=== PATIENT | female | born 1935 | race Caucasian/White ===

== ENCOUNTER 2016-05-17 09:09 | Outpatient (CLI) | payer MEDICARE, OTHER | END 2016-05-17 09:10 | disposition home or self-care (01) | DX: Z12.31 Encounter for screening mammogram for malignant neoplasm of breast (principal) ==

== ENCOUNTER 2016-09-05 06:51 | Outpatient (CLI) | payer MEDICARE, OTHER ==
[2016-09-05 19:42] LABS: ALBUMIN/GLOBULIN RATIO 1.4 (1.0-2.2); BILIRUBIN,TOTAL 0.6 mg/dL (0.2-1.0); BUN - BLOOD UREA NITROGEN 18 mg/dL (6-20); CALCIUM 9.6 mg/dL (8.5-10.3); CARBON DIOXIDE - CO2 29 mmol/L (21-32); CHLORIDE 104 mmol/L (101-111); CHOL/HDL RATIO 4.3 (<4.4); CHOLESTEROL 263 mg/dL; CREATININE 1.1 mg/dL (0.4-1.0); GFR - MDRD 48 (>89); GLUCOSE 96 mg/dL (70-100); HDL CHOLESTEROL 61 mg/dL; LDL/HDL RATIO 2.9 (<4.4); POTASSIUM 4.3 mmol/L (3.5-5.0); SODIUM 140 mmol/L (135-145); TOTAL PROTEIN 7.3 g/dL (6.7-8.2); TRIGLYCERIDES 125 mg/dL; VLDL CHOLESTEROL 25 mg/dL
== END 2016-09-05 06:52 ==
LOC: LAB.WCP 06:51
PROVIDERS: ATTEND Physician Assistant Medical
DX: E78.5 Hyperlipidemia, unspecified (principal)
CPT/HCPCS: 36415; 80053; 80061

== ENCOUNTER 2016-12-20 12:43 | Outpatient (CLI) | payer MEDICARE, OTHER | END 2016-12-20 12:44 | disposition home or self-care (01) | LOC: LAB.R 12:43 | PROVIDERS: ATTEND Physician Assistant Medical | DX: N39.0 Urinary tract infection, site not specified (principal) | CPT/HCPCS: 87086 ==

== ENCOUNTER 2017-03-16 08:00 | Outpatient (CLI) | payer MEDICARE, OTHER ==
[2017-03-16 19:25] LABS: BASOPHILS # (AUTO) 0.1 10^3/uL (0.0-0.1); BASOPHILS % (AUTO) 0.8 %; EOSINOPHILS # (AUTO) 0.1 10^3/uL (0.0-0.7); EOSINOPHILS % (AUTO) 0.8 %; HGB - HEMOGLOBIN 14.1 g/dL (12.0-16.0); LYMPHOCYTES # (AUTO) 2.2 10^3/uL (1.5-3.5); MEAN CORPUSCULAR HEMOGLOBIN 28.9 pg (27.0-31.0); MEAN CORPUSCULAR HGB CONC 32.3 g/dL (32.0-36.0); MEAN CORPUSCULAR VOLUME 89.3 fL (81.0-99.0); MEAN PLATELET VOLUME 9.9 fL (7.9-10.8); MONOCYTES # (AUTO) 0.5 10^3/uL (0.0-1.0); MONOCYTES % (AUTO) 6.5 %; NEUTROPHILS # (AUTO) 4.9 10^3/uL (1.5-6.6); NEUTROPHILS % (AUTO) 63.9 %; PLT - PLATELET COUNT 292 10^3/uL (130-450); RED CELL DISTRIBUTION WIDTH 14.2 % (12.0-15.0); WHITE BLOOD COUNT 7.7 x10^3/uL (4.8-10.8)
[2017-03-16 19:54] LABS: ALBUMIN 4.3 g/dL (3.2-5.5); ALBUMIN/GLOBULIN RATIO 1.4 (1.0-2.2); ALKALINE PHOSPHATASE 62 IU/L (42-121); ALT ALANINE AMINOTRANSFERASE 15 IU/L (10-60); AST ASPARTATE AMINOTRANSFERASE 23 IU/L (10-42); BILIRUBIN,TOTAL 0.6 mg/dL (0.2-1.0); BUN - BLOOD UREA NITROGEN 17 mg/dL (6-20); CALCIUM 9.2 mg/dL (8.5-10.3); CARBON DIOXIDE - CO2 26 mmol/L (21-32); CHLORIDE 109 mmol/L (101-111); CHOLESTEROL 292 mg/dL; CREATININE 1.1 mg/dL (0.4-1.0); GFR - MDRD 48 (>89); GLUCOSE 109 mg/dL (70-100); HDL CHOLESTEROL 58 mg/dL; LDL CHOLESTEROL,CALCULATED 203 mg/dL; LDL/HDL RATIO 3.5 (<4.4); SODIUM 139 mmol/L (135-145); TOTAL PROTEIN 7.3 g/dL (6.7-8.2); VLDL CHOLESTEROL 31 mg/dL
== END 2017-03-16 08:01 | disposition home or self-care (01) ==
LOC: LAB.WCP 08:00
PROVIDERS: ATTEND Physician Assistant Medical
DX: E78.5 Hyperlipidemia, unspecified (principal); E03.9 Hypothyroidism, unspecified; K57.90 Diverticulosis of intestine, part unspecified, without perforation or abscess without bleeding
CPT/HCPCS: 36415; 80053; 80061; 83721; 84443; 85025

== ENCOUNTER 2017-08-08 08:00 | Outpatient (CLI) | payer MEDICARE, OTHER | END 2017-08-08 08:01 | LOC: LAB.R 08:00 | PROVIDERS: ATTEND Family Medicine | DX: N39.0 Urinary tract infection, site not specified (principal) | CPT/HCPCS: 87077; 87086; 87181 ==

== ENCOUNTER 2017-11-24 10:37 | Outpatient (CLI) | payer MEDICARE, OTHER ==
--- NOTE | 2017-11-27 11:48 | Mammography Report ---
Reason: SCREENING MAMMO Procedure Date: 11/24/2017 Accession Number: [id number] / [id number] Procedure: MGN - Screening Mammo Dig Bilat CPT Code: FULL RESULT: EXAM: Screening Mammo Dig Bilat DATE: 11/24/2017 11:04 AM CLINICAL HISTORY: 82-year-old female with history of left breast lump removal with benign pathology results. TECHNIQUE: Bilateral CC and MLO views were obtained. COMPARISON: 05/17/2016, 03/23/2015, 01/27/2014, 07/06/2011. FINDINGS: The breasts demonstrate scattered fibroglandular densities bilaterally. Bilateral typically benign vascular calcifications are again seen. Bilateral typically benign coarse calcifications are again seen. A biopsy marker is seen in the right breast. There are stable bilateral well-circumscribed hyperdense masses. No suspicious masses, clustered microcalcifications, or regions of architectural distortion are identified. IMPRESSION: Benign findings RECOMMENDATION: Routine annual screening unless otherwise clinically indicated. BIRADS CATEGORY 2: Benign findings STANDARD QUALIFYING STATEMENTS: 1. This examination was not reviewed with the aid of Computer-Aided Detection (CAD). 2. A negative or benign imaging report should not delay biopsy if clinically suspicious findings are present. Consider surgical consultation if warrented. More than 5% of cancers are not identified by imaging. 3. Dense breasts may obscure an underlying neoplasm. 4. This examination was reviewed without the aid of 3D breast imaging (tomosynthesis).
== END 2017-11-24 10:38 | disposition home or self-care (01) ==
LOC: DI.N 10:37
DX: Z12.31 Encounter for screening mammogram for malignant neoplasm of breast (principal)
CPT/HCPCS: 77067

== ENCOUNTER 2018-02-28 11:31 | Outpatient (CLI) | payer MEDICARE, OTHER ==
[2018-02-28 18:58] LABS: BASOPHILS # (AUTO) 0.1 10^3/uL (0.0-0.1); EOSINOPHILS # (AUTO) 0.1 10^3/uL (0.0-0.7); EOSINOPHILS % (AUTO) 0.8 %; HGB - HEMOGLOBIN 14.1 g/dL (12.0-16.0); LYMPHOCYTES % (AUTO) 27.3 %; MEAN CORPUSCULAR HEMOGLOBIN 29.4 pg (27.0-31.0); MEAN CORPUSCULAR HGB CONC 32.2 g/dL (32.0-36.0); MEAN CORPUSCULAR VOLUME 91.4 fL (81.0-99.0); MEAN PLATELET VOLUME 9.5 fL (7.9-10.8); MONOCYTES # (AUTO) 0.5 10^3/uL (0.0-1.0); MONOCYTES % (AUTO) 6.2 %; NEUTROPHILS # (AUTO) 4.8 10^3/uL (1.5-6.6); NEUTROPHILS % (AUTO) 64.7 %; PLT - PLATELET COUNT 295 10^3/uL (130-450); RED BLOOD COUNT 4.81 10^6/uL (4.20-5.40); RED CELL DISTRIBUTION WIDTH 13.4 % (12.0-15.0); WHITE BLOOD COUNT 7.5 x10^3/uL (4.8-10.8)
[2018-02-28 19:38] LABS: BUN - BLOOD UREA NITROGEN 13 mg/dL (6-20); CARBON DIOXIDE - CO2 29 mmol/L (21-32); CHLORIDE 103 mmol/L (101-111); CREATININE 0.9 mg/dL (0.4-1.0); GFR - MDRD 60 (>89); SODIUM 141 mmol/L (135-145)
[2018-02-28 19:39] LABS: ALBUMIN 4.3 g/dL (3.2-5.5); ALBUMIN/GLOBULIN RATIO 1.6 (1.0-2.2); ALKALINE PHOSPHATASE 72 IU/L (42-121); ALT ALANINE AMINOTRANSFERASE 16 IU/L (10-60); AST ASPARTATE AMINOTRANSFERASE 22 IU/L (10-42); BILIRUBIN,TOTAL 0.5 mg/dL (0.2-1.0); CALCIUM 9.2 mg/dL (8.5-10.3); CHOL/HDL RATIO 5.2 (<4.4); CHOLESTEROL 321 mg/dL; GLUCOSE 101 mg/dL (70-100); HDL CHOLESTEROL 62 mg/dL; LDL CHOLESTEROL,CALCULATED 232 mg/dL; LDL/HDL RATIO 3.7 (<4.4); VLDL CHOLESTEROL 27 mg/dL
== END 2018-02-28 23:59 | disposition home or self-care (01) ==
LOC: LAB.WCP 11:31
PROVIDERS: ATTEND Physician Assistant Medical
DX: R73.01 Impaired fasting glucose (principal); I12.9 Hypertensive chronic kidney disease with stage 1 through stage 4 chronic kidney disease, or unspecified chronic kidney disease; N18.9 Chronic kidney disease, unspecified; E78.5 Hyperlipidemia, unspecified; E03.9 Hypothyroidism, unspecified
CPT/HCPCS: 36415; 80053; 80061; 83721; 84443; 85025

== ENCOUNTER 2018-03-07 08:00 | Outpatient (CLI) | payer MEDICARE, OTHER | END 2018-03-07 23:59 | disposition home or self-care (01) | LOC: LAB.R 08:00 | PROVIDERS: ATTEND Physician Assistant Medical | DX: N39.0 Urinary tract infection, site not specified (principal) | CPT/HCPCS: 87086 ==

== ENCOUNTER 2018-03-12 11:23 | Outpatient (CLI) | payer MEDICARE, OTHER | END 2018-03-12 11:24 | disposition home or self-care (01) | LOC: DI 11:23 | PROVIDERS: ATTEND Physician Assistant Medical | DX: R01.1 Cardiac murmur, unspecified (principal); I35.0 Nonrheumatic aortic (valve) stenosis; I27.20 Pulmonary hypertension, unspecified | CPT/HCPCS: 93306 ==

== ENCOUNTER 2018-09-19 11:48 | Outpatient (CLI) | payer MEDICARE, OTHER | END 2018-09-19 11:49 | disposition critical access hospital (66) | LOC: EMS 11:48 | PROVIDERS: ATTEND Surgery | DX: R47.9 Unspecified speech disturbances (principal) | CPT/HCPCS: A0425; A0429 ==

== ENCOUNTER 2018-09-19 12:08 | Observation (INO) | payer MEDICARE, OTHER ==
--- NOTE | 2018-09-19 12:14 | ED Physician Documentation ---
PD HPI FOCAL NEURO - Stated complaint Stated Complaint: POSS STROKE - History obtained from History obtained from: Patient, EMS - History of Present Illness Timing - onset: Today (At 11 AM she started to have word finding difficulties that lasted about half an hour and are resolved on arrival. She had some tingling in the feet, both of them on the way here which is also resolved. No history of stroke. She had an echo recently showing mild to moderate aortic stenosis. 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, Other HEENT: Cataracts, Tonsil/Adenoidectomy - Present Medications Home Medications: Ambulatory Orders Medication Instructions Recorded Confirmed Aspirin [Aspir-Low] 81 mg PO DAILY 07/13/15 07/13/15 Cholecalciferol [Vitamin D3] 5,000 unit PO DAILY 07/13/15 07/13/15 Levothyroxine Sodium [Levoxyl] 50 mcg PO DAILY 07/13/15 07/13/15 - Allergies Allergies/Adverse Reactions: Allergies Allergy/AdvReac Type Severity Reaction Status Date / Time alendronate sodium Allergy Unknown Verified 07/13/15 12:24 [From Fosamax] ciprofloxacin [From Cipro] Allergy Unknown Verified 07/13/15 12:24 ciprofloxacin HCl * Allergy Unknown Verified 07/13/15 12:24 [From Cipro] nitrofurantoin Allergy Unknown Verified 07/13/15 12:24 [From Macrobid] nitrofurantoin Allergy Unknown Verified 07/13/15 12:24 macrocrystalline * [From Macrobid] Penicillins Allergy Unknown Verified 07/13/15 12:24 rosuvastatin calcium * Allergy Unknown Verified 07/13/15 12:24 [From Crestor] Sulfa (Sulfonamide Allergy Unknown Verified 07/13/15 12:24 Antibiotics) PD ED PE NORMAL - Vitals Vital signs reviewed: Yes - General General: Alert and oriented X 3, No acute distress - HEENT HEENT: PERRL, EOMI - Neck Neck: Supple, no meningeal sign, No bony TTP - Cardiac Cardiac: RRR, Other (3/6 Decrescendo systolic murmur heard best at the upper sternal border) - Respiratory Respiratory: No respiratory distress, Clear bilaterally - Abdomen Abdomen: Normal bowel sounds, Soft, Non tender - Back Back: No CVA TTP, No spinal TTP - Derm Derm: Normal color, Warm and dry - Extremities Extremities: No edema, No calf tenderness / cord - Neuro Neuro: Alert and oriented X 3, Normal speech Eye Opening: Spontaneous Motor: Obeys Commands Verbal: Oriented GCS Score: 15 - Psych Psych: Normal mood, Normal affect NIHSS - Time Time: 12:30 - Level of Consciousness Level of consciousness: (0) Alert, Keenly responsive LOC Questions: (0) Answers both Q's correct LOC Commands: (0) Performs both correctly - Gaze Best Gaze: (0) Normal - Visual Visual: (0) No loss - Facial Palsy Facial Palsy: (0) Normal, symmetrical movement - Motor Arms (both separate) Motor Arm (right): (0) No drift Motor Arm (left): (0) No drift - Motor Legs (both separate) Motor Leg (right): (0) No drift Motor Leg (left): (0) No drift - Limb Ataxia Limb Ataxia: (0) Absent - Sensory Sensory: (0) Normal - Best Language Best Language: (0) No aphasia - Dysarthria Dysarthria: (0) Normal - Extinction and Inattention (formally neg Extinction and inattention: (0) No abnormality - Total Score/Results Total Score/Result: 0 Results - Vitals Vitals: Vital Signs - 24 hr 09/19/18 09/19/18 12:24 12:33 Temperature 36.7 C Heart Rate 91 82 Respiratory 14 22 Rate Blood Pressure 207/80 H 224/94 H O2 Saturation 95 98 Oxygen O2 Source Room air - EKG (time done) 1223 Rate: Rate (enter#) (83) Rhythm: NSR [place]: Normal Intervals: Normal OR, Prolonged QT QRS: LVH Computer interpretation: Agree with computer - Labs Labs: Laboratory Tests 09/19/18 09/19/18 09/19/18 12:51 12:51 12:51 WBC 7.4 RBC 4.80 Hgb 14.1 Hct 43.2 MCV 90.0 MCH 29.4 MCHC 32.6 RDW 13.3 Plt Count 277 MPV 10.9 H Neut # (Auto) 4.7 Lymph # (Auto) 2.0 Gregory # (Auto) 0.5 Eos # (Auto) 0.1 Baso # (Auto) 0.1 Absolute Nucleated RBC 0.00 Nucleated RBC % 0.0 PT 12.2 INR 1.1 Sodium 143 Potassium 3.5 Chloride 104 Carbon Dioxide 27 Anion Gap 12.0 BUN 16 Creatinine 0.9 Estimated GFR (MDRD) 60 L Glucose 101 H Calcium 9.4 Total Bilirubin 0.8 AST 19 ALT 15 Alkaline Phosphatase 69 Total Protein 7.3 Albumin 4.0 Globulin 3.3 Albumin/Globulin Ratio 1.2 Lipase 38 Urine Color Urine Clarity Urine pH Ur Specific [place] Urine Protein Urine Glucose (UA) Urine Ketones Urine Occult Blood Urine Nitrite Urine Bilirubin Urine Urobilinogen Ur Leukocyte Esterase Urine RBC Urine WBC Urine WBC Clumps Ur Squamous Epith Cells Urine Bacteria Ur Microscopic Review 09/19/18 12:51 WBC RBC Hgb Hct MCV MCH MCHC RDW Plt Count MPV Neut # (Auto) Lymph # (Auto) Gregory # (Auto) Eos # (Auto) Baso # (Auto) Absolute Nucleated RBC Nucleated RBC % PT INR Sodium Potassium Chloride Carbon Dioxide Anion Gap BUN Creatinine Estimated GFR (MDRD) Glucose Calcium Total Bilirubin AST ALT Alkaline Phosphatase Total Protein Albumin Globulin Albumin/Globulin Ratio Lipase Urine Color LT. YELLOW Urine Clarity CLEAR Urine pH 7.0 Ur Specific [place] <=1.005 Urine Protein NEGATIVE Urine Glucose (UA) NEGATIVE Urine Ketones NEGATIVE Urine Occult Blood NEGATIVE Urine Nitrite POSITIVE H Urine Bilirubin NEGATIVE Urine Urobilinogen 0.2 (NORMAL) Ur Leukocyte Esterase NEGATIVE Urine RBC 0-5 Urine WBC 4-5 Urine WBC Clumps PRESENT Ur Squamous Epith Cells NONE SEEN Urine Bacteria Few Ur Microscopic Review INDICATED - Rads (name of study) Ct Head (noncon) Radiology: EMP read contemporaneously (age related atrophy, NAD) CTA Head and neck Radiology: See rad report (See radiology report. Briefly some atherosclerosis in the carotids but multiple areas of high-grade stenosis and occlusion intracranially.) PD MEDICAL DECISION MAKING - ED course ED course: 83-year-old woman presents with symptoms of resolved TIA. She has a history of aortic stenosis. She is not anticoagulated. Blood sugar prior to arrival was 137. After the results of her plain head CT she was administered aspirin and IV fluids, and subsequent to that after reviewing the read on the CTA of the head I spoke with Dr. Aldridge at [facility] neurology. There is nothing interventional to be offered regarding the stenoses but he recommends Plavix and aspirin for the next 90 days, admission for thorough TIA work-up including echo and cardiac monitoring. After 90 days she should be on Plavix alone. He agreed with permissive hypertension. She was placed on Keflex for apparent UTI noting multiple antibiotic allergies. - Consults Consults: Consulted (name) (Dr Kc, hospitalist for obs at 1443) Departure - Departure Disposition: ED Place in Observation Clinical Impression: TIA (transient ischemic attack), Intracranial vascular stenosis Urinary tract infection Qualifiers: Urinary tract infection type: site unspecified Hematuria presence: without hematuria Qualified Code(s): N39.0 - Urinary tract infection, site not specified Condition: Serious
--- NOTE | 2018-09-19 12:38 | CT Report ---
Reason: TIA sx Procedure Date: 09/19/2018 Accession Number: [id number] / [id number] Procedure: CT - Head W/O Stroke Protocol CPT Code: FULL RESULT: EXAM: CT HEAD EXAM DATE: 09/19/2018 12:22 PM. CLINICAL HISTORY: TIA sx. Word finding difficulty. COMPARISON: None. TECHNIQUE: Multiaxial CT images were obtained from the foramen magnum to the vertex. Reformats: Sagittal and coronal. IV contrast: None. In accordance with CT protocol optimization, one or more of the following dose reduction techniques were utilized for this exam: automated exposure control, adjustment of mA and/or KV based on patient size, or use of iterative reconstructive technique. FINDINGS: Parenchyma: No intraparenchymal hemorrhage. No evidence of mass, midline shift, or CT findings of acute infarction. Richter-white differentiation is distinct. Diffuse chronic microangiopathic white matter changes are evident. Physiologic left basal ganglia calcification. Extraaxial Spaces: Normal for age. No subdural or epidural collections identified. Ventricles: The ventricles and cortical sulci are enlarged, consistent with age-related tissue loss. Sinuses and orbits: Imaged paranasal sinuses, orbits, and mastoids show no significant abnormality. Bones: No evidence of fracture or calvarial defect. Other: None. IMPRESSION: 1. Generalized age-related cortical atrophic changes without evidence of acute intracranial abnormality. 2. No evidence for intracranial hemorrhage or large recent infarct. RADIA The critical test notification system was initiated by Dr. Lamont Dillon at 12:29 PM on 09/19/2018. The above critical test findings were discussed with Wilmer Crane by Dr. Lamont Dillon at 12:37 PM on 09/19/2018.
[2018-09-19] MEDS ORDERED: ASPIRIN CHEW 81 MG TABLET PO STA (12:44)
[2018-09-19] MEDS ORDERED: SODIUM CHLORIDE 0.9% 1,000 ML IV ONE (12:44)
[2018-09-19] MEDS ORDERED: IOVERSOL 320 100 ML VIAL IVP ONE ×2 (12:54→14:16)
[2018-09-19 12:59] LABS: BASOPHILS # (AUTO) 0.1 10^3/uL (0.0-0.1); BASOPHILS % (AUTO) 0.9 %; EOSINOPHILS # (AUTO) 0.1 10^3/uL (0.0-0.7); EOSINOPHILS % (AUTO) 1.9 %; HGB - HEMOGLOBIN 14.1 g/dL (12.0-16.0); LYMPHOCYTES % (AUTO) 27.2 %; MEAN CORPUSCULAR HEMOGLOBIN 29.4 pg (27.0-31.0); MEAN CORPUSCULAR HGB CONC 32.6 g/dL (32.0-36.0); MEAN PLATELET VOLUME 10.9 fL (7.9-10.8); MONOCYTES # (AUTO) 0.5 10^3/uL (0.0-1.0); MONOCYTES % (AUTO) 6.5 %; NEUTROPHILS # (AUTO) 4.7 10^3/uL (1.5-6.6); NEUTROPHILS % (AUTO) 63.2 %; PLT - PLATELET COUNT 277 10^3/uL (130-450); RED CELL DISTRIBUTION WIDTH 13.3 % (12.0-15.0); WHITE BLOOD COUNT 7.4 x10^3/uL (4.8-10.8)
[2018-09-19 13:04] LABS: BILIRUBIN,URINE NEGATIVE (NEGATIVE); GLUCOSE, URINE (UA) NEGATIVE (NEGATIVE); KETONES,URINE (UA) NEGATIVE (NEGATIVE); LEUKOCYTE ESTERASE, URINE NEGATIVE (NEGATIVE); NITRITE,URINE POSITIVE (NEGATIVE); OCCULT BLOOD,URINE NEGATIVE (NEGATIVE); PROTEIN,URINE NEGATIVE (NEGATIVE); UROBILINOGEN,URINE 0.2 (NORMAL) E.U./dL (NORMAL)
[2018-09-19 13:05] LABS: INR 1.1 (0.8-1.2); PT - PROTHROMBIN TIME 12.2 secs (9.9-12.6)
[2018-09-19 13:08] LABS: CLARITY,URINE CLEAR (CLEAR)
[2018-09-19 13:21] LABS: ALBUMIN/GLOBULIN RATIO 1.2 (1.0-2.2); BILIRUBIN,TOTAL 0.8 mg/dL (0.2-1.0); CALCIUM 9.4 mg/dL (8.5-10.3); CREATININE 0.9 mg/dL (0.4-1.0); TOTAL PROTEIN 7.3 g/dL (6.7-8.2)
[2018-09-19 13:22] LABS: BACTERIA,URINE Few /HPF (None Seen); RBC,URINE 0-5 /HPF (0-5); SQUAMOUS EPITHELIAL CELL,UR NONE SEEN (<= Few)
[2018-09-19 13:23] LABS: WBC CLUMPS,URINE PRESENT
--- NOTE | 2018-09-19 14:23 | CT Report ---
Reason: TIA c word finding diff Procedure Date: 09/19/2018 Accession Number: [id number] / [id number] Procedure: CT - ANGIO HEAD W/WO CPT Code: FULL RESULT: EXAM: CT ANGIOGRAM HEAD EXAM DATE: 09/19/2018 01:50 PM CLINICAL HISTORY: 83-year-old woman with word finding difficulty and TIA. COMPARISON: HEAD W/O STROKE PROTOCOL 09/19/2018 12:12 PM. TECHNIQUE: - CT Scan Head: Using a multidetector scanner, axial images were acquired from the foramen magnum to the skull vertex following contrast administration. - CT Angiogram: Using a multidetector scanner, high-resolution axial images were acquired from the skull base through vertex following rapid infusion of intravenous contrast. Reformats: Multiplanar MIP reformats were reconstructed. Nascet criteria used for stenosis measurement. IV Contrast: OPTI 320 80ML. In accordance with CT protocol optimization, one or more of the following dose reduction techniques were utilized for this exam: automated exposure control, adjustment of mA and/or KV based on patient size, or use of iterative reconstructive technique. FINDINGS: CTA HEAD: RIGHT: - Visualized Internal Carotid: Patent without aneurysm. There is mild narrowing (approximately 50%) of the distal supraclinoid segment. Mild atherosclerotic plaque is present along the siphon. - Anterior Cerebral: Focal high-grade stenosis (greater than 70% luminal narrowing) is present along the proximal A1 segment. The remainder of the arteries patent without significant stenosis aneurysm. - Middle Cerebral: Patent without significant stenosis or aneurysm. - Posterior Cerebral: Patent without significant stenosis or aneurysm. - Posterior Communicating: Patent. No aneurysm. - Visualized Vertebral: Patent without significant stenosis or dissection. LEFT: - Visualized Internal Carotid: Patent without significant stenosis or aneurysm. There is mild atherosclerotic plaque along the siphon. - Anterior Cerebral: Patent without significant stenosis or aneurysm. - Middle Cerebral: Patent without aneurysm. There is focal high-grade stenosis (greater than 70% luminal narrowing) along the proximal temporal M2 segment (image 46, series 10). This branch also demonstrates diffuse irregularity with high-grade stenoses or occlusions in the posterior sylvian fissure (image 48, series 10). - Posterior Cerebral: Patent without aneurysm. The artery is irregular with scattered mild to moderate stenoses (50-70% luminal narrowing). - Posterior Communicating: Patent. No aneurysm. - Visualized Vertebral: Patent without significant stenosis or dissection. CENTRAL: - Anterior Communicating: Patent. No aneurysm. - Basilar: Patent without significant stenosis, dissection, or aneurysm. The arteries irregular, consistent with underlying atherosclerotic plaque. Dural Venous Sinuses and Major Central Veins: Patent. POSTCONTRAST HEAD: No abnormal enhancement. Please see earlier noncontrast exam for complete description of noncontrast findings. IMPRESSION: 1. High-grade stenosis (greater than 70% luminal narrowing) of the proximal left MCA temporal M2 trunk and additional high-grade stenoses or occlusions of the distal artery. 2. High-grade stenosis (greater than 70% luminal narrowing) of the right STEPHANIE A1 segment. 3. 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 4. Mild narrowing (approximately 50%) of the right ICA supra-clinoid segment. RADIA
--- NOTE | 2018-09-19 14:26 | CT Report ---
Reason: TIA w word finding diff Procedure Date: 09/19/2018 Accession Number: [id number] / [id number] Procedure: CT - ANGIO NECK W CPT Code: FULL RESULT: EXAM: CT ANGIOGRAM NECK EXAM DATE: 09/19/2018 01:50 PM. CLINICAL HISTORY: 83-year-old woman with word finding difficulty and TIA. COMPARISON: HEAD W/O STROKE PROTOCOL 09/19/2018 12:12 PM. TECHNIQUE: Routine axial helical imaging was performed from the skull base through the aortic arch. Reconstructions: Routine multiplanar 3D MIP reconstructions. IV Contrast: OPTI 320 80ML. Evaluation of arterial stenosis is based on a NASCET method of measurement. In accordance with CT protocol optimization, one or more of the following dose reduction techniques were utilized for this exam: automated exposure control, adjustment of mA and/or KV based on patient size, or use of iterative reconstructive technique. FINDINGS: RIGHT: - Common and Internal Carotid: Patent without signficant stenosis. There is calcified atherosclerotic plaque at the bifurcation and proximal ICA. Stenosis by NASCET criteria: Less than 50%. No evidence of dissection. - External Carotid: Unremarkable. - Vertebral: Patent without significant stenosis. No evidence of dissection. LEFT: - Common and Internal Carotid: Patent without signficant stenosis. There is calcified atherosclerotic plaque at the bifurcation and proximal ICA. Stenosis by NASCET criteria: Less than 25%. No evidence of dissection. - External Carotid: Unremarkable. - Vertebral: Patent without significant stenosis. No evidence of dissection. SOFT TISSUES AND BONES: Visualized soft tissues are unremarkable. Lung apices are clear. No evidence of acute fracture or malalignment of the cervical spine. IMPRESSION: 1. Atherosclerotic plaque at the carotid bifurcations and proximal ICAs results in mild stenosis (less than 50% narrowing on the right and less than 25% narrowing on the left). No evidence of dissection. 2. Vertebral arteries are patent without significant stenosis, atherosclerotic plaque, or dissection. RADIA
[2018-09-19] MEDS ORDERED: CLOPIDOGREL 300 MG TABLET PO STA (14:34)
[2018-09-19] MEDS ORDERED: NITROFURANTOIN MACRO 100 MG CAPSULE PO STA (14:43)
[2018-09-19] MEDS ORDERED: oxyCODONE 5 MG TABLET PO PRN (14:43)
[2018-09-19] MEDS ORDERED: ONDANSETRON ODT 4 MG TABLET TL PRN (14:43)
[2018-09-19] MEDS ORDERED: SODIUM CHLORIDE FLUSH 0.9% 10 ML SYRINGE IVP PRN (14:43)
[2018-09-19] MEDS ORDERED: ACETAMINOPHEN 325 MG TABLET PO PRN (14:43)
[2018-09-19] MEDS ORDERED: ONDANSETRON 4 MG/2 ML VIAL IVP PRN (14:43)
[2018-09-19] MEDS ORDERED: cephALEXin 250 MG CAPSULE PO STA (14:44)
[2018-09-19] MEDS: SODIUM CHLORIDE FLUSH 0.9% 10 ML SYRINGE IVP SCH ×2 (16:58→21:23)
--- NOTE | 2018-09-19 19:00 | HISTORY & PHYSICAL EXAMINATION ---
DATE OF SERVICE: 09/19/2018 Physician: Leila Kc MD DATE OF ADMISSION: 09/19/2018 PRIMARY CARE PROVIDER: Ulises Jorgensen DO ADMITTING PROVIDER: Leila Kc MD CHIEF COMPLAINT: Garbled speech. HISTORY OF PRESENT ILLNESS: This is an absolutely dave loquacious elderly female whose risk factors for heart disease and stroke include high blood pressure, hyperlipidemia and age. She is very reluctant to take medications and in the past has felt like she developed a reaction to statins. They made her legs hurt so she does not want to take them. It took her primary care provider several months to convince her to take thyroid medicine for her hypothyroidism. She has been seen for neurological symptoms in the past. She had worse tinnitus and dizziness in 2001, and an MRI showed her to have bilateral mastoiditis and bilateral otitis media. She also had increased white matter disease in the supratentorial region. She was seen by neurology and felt that there was no disease that needed to be treated. She was seen by neurology again in June 2007 for a tremor. She was diagnosed as having a benign essential tremor. A carotid bruit was audible in April 2008 and carotid Dopplers were negative. She was again seen by neurology for her benign essential tremor in April 2014 for a second opinion. The same neurologist that saw her in 2007 continued to state it was a benign essential tremor. On his examination, he did not hear any carotid bruits. This woman has frequent episodes of dizziness. She has been seen by ENT. She describes at least 5 falls in the last 3 years. Some are coming out of her house in her garage and she landed against a car. Once she was walking on uneven ground on her driveway and fell on her right side and rolled down the small hill. She fell at her brother's birthday green party in April 2018. She was in a hotel room, felt like she tripped on something and went down between the toilet and the wall in her shoulder hit the toilet handle where she flushed the toilet and her head hit the back side of the toilet stand. She lives alone. Today, she was out having lunch with a friend. In the midst of having lunch, she could not get her words out. She could not speak. She felt like she knew what she needed to stay, but they would not come out. Her feet felt like they were and numb and she felt very shaky and anxious. She went to see her primary care provider office. In the office, she had a normal neurological examination and she was transferred to the hospital via EMS. In the emergency room, the patient's blood pressure was 207/80. She was afebrile and otherwise had normal vital signs. She had no neurological deficits. While in the emergency room, her blood pressure went from 207 to 220 systolic, 80 to 82 diastolic. By the time she was transferred to med/surg blood pressure was now down to 187/88. She does not take any antihypertensives. In her primary care provider office blood pressure was 180/60 today. Usually her blood pressure is quite reasonable. In the last 2 years, she has seen a noticeable trend upward. She used to be in the 120 systolic 5 to 6 years ago. He has now been 130s and up to 150s systolic between 2017 and 2019. Patient is now placed in observation for a possible TIA. Initial CT of the head is negative, and CT angiogram of the head and neck are negative. Negative in that there is no evidence of dissection or clinically significant stenosis. She has atherosclerotic plaquing at the carotid bifurcation and proximal internal carotid arteries resulting in mild stenosis. Less than 50% on the right and less than 25% on the left. Her vertebral arteries are patent. PAST MEDICAL HISTORY 1. Hypothyroidism. 2. 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 3. Tinnitus, benign positional vertigo. 4. G1, P1. Estrogen replacement therapy until 2000, status post total abdominal hysterectomy. 5. Hiatal hernia. Gastroesophageal reflux disease. 6. Ventral abdominal wall hernia. 7. Diverticulosis. Colonoscopy was done with Dr. Borrego in June 2015. She has had colon resection in the past for diverticular disease. 8. Hyperlipidemia. 9. Chest pain, sternal, aching with a stress test negative in 10/2012. 10. Cataract surgery 03/2014. 11. Osteoporosis. DEXA scan in the past have shown lumbar spine to be a T- score as high as -3.1. Total T-score in the spine has been -2.6 and in the hip has been -1.3. 12. Anxiety. 13. Stereotactic breast biopsy, benign May 2010 and 2008. 14. Tonsillectomy age 17. 15. Right inguinal hernia repair in 1967. 16. Aortic stenosis. Echocardiogram done by [facility] confirms early mild aortic stenosis. ALLERGIES 1. FOSAMAX. 2. AMOXICILLIN. 3. CIPROFLOXACIN. 4. NITROFURANTOIN 5. PENICILLIN. 6. ROSUVASTATIN. 7. SULFA. SOCIAL HISTORY: She is from [place]. Is one of 11 children. to her for many, many decades and he in approximately March 2017. 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 Worked at [employer] there. She never smoked. Rarely drank alcohol. She has no history of recreational substance abuse. Daughter currently lives in [place], [place]. She does have a sister who lives nearby. FAMILY HISTORY: Father while in [place]. He was in [place] for illegal bootlegging. of questionable peptic ulcer disease and rupture. Mom at age 75 of stomach cancer. There were children 13 all in her family. One at . One when they were about 2 years old of some unknown childhood illnesses. Of the rest of the 10 siblings she has, some have of coronary artery disease, cancer, and aneurysms. Quite a few of her siblings have had heart attacks and bypass surgery. One child is healthy. REVIEW OF SYSTEMS CONSTITUTIONAL: There are no complaints of fever, chills, sweats, or unexpected weight loss. ENT: She has had occasional eye infections in the past, a sty. She has had cataract surgery. She denies blurred vision, photophobia. She denies problems with swallowing, facial dysesthesia, and has chronic deafness. PULMONARY: Some people say "she has asthma" but she stoutly denying that. When I asked who those some people are, she cannot really say. But she denies coughing, wheezing, chest congestion, hemoptysis. CARDIAC: She gets palpitations since the mid . She was seen by Jay Beth for this. He gave his opinion that they were so infrequent, and clinically not manifesting with any hemodynamic instability or syncope that he had no further workup was instituted. She has had chest pain as noted above. The aortic stenosis has resulted in a murmur, but she has not had syncope, congestive heart failure with this disease. Today would be the first time she would be manifesting any neurological symptoms if they were attributable to aortic stenosis. GASTROINTESTINAL: For chronic constipation. An easily upset stomach. She says that even taking her thyroid pills sometimes makes her stomach upset. GENITOURINARY: Constant feeling of vaginal itching and urgency. She has been seen for urinary tract infections through her PCP office. She may be describing atrophic vaginitis. JOINTS: Ache. Because of a different falls, different parts of her body hurt more than others. Right now, her right shoulder hurts, right hip hurts. With one of her landings and rolling down a sidewalk, right hip has never "been the same." Back will hurt. Joints are stiff in the morning and get better by later on in the day. DERMATOLOGIC: Occasional rashes in her life, but nothing that is severe, nothing recurrent. No new lesions, no pruritus. PSYCHIATRIC: Denies depression other than when her . She says that sometimes she is "a little high strung" but no true panic attacks. CENTRAL NERVOUS SYSTEM: No history of syncope or seizures. Positive tinnitus, positive falls. No focal neurological deficits. PHYSICAL EXAMINATION VITAL SIGNS: Temperature is 36.7, pulse is 81, blood pressure 187/88, respirations 18, O2 saturation 98% on room air. She is 5 feet 4 inches tall and weighs 73 kg. She is a delightful, alert, loquacious elderly [facility] female. She is 5 feet 4 inches tall and 73 kg. GENERAL PHYSICAL EXAM: She is alert, loquacious dave female. Is comfortable, looks her stated age. ENT: Normocephalic, atraumatic skull. Pupils are reactive. Sclerae nonicteric. Moist oral mucosa. Speech is normal. Normal facial symmetry. NECK: No goiter. Normal carotid upstroke. I do hear a radiated murmur from heart to neck. LUNGS: Clear to auscultation and percussion without any increased respiratory effort. There are no crackles, rhonchi or wheezing. HEART: PMI is normally placed with a regular rate, rhythm and a soft systolic ejection murmur that radiates up into the right upper sternal border and carotids. ABDOMEN: Soft, nontender. No organomegaly. No masses. EXTREMITIES: Warm without clubbing, cyanosis or edema. Mild to moderate osteoarthritic deformities of the proximal interphalangeal joint. NEUROLOGIC: Other than the deafness, cranial nerves II through XII appear grossly intact. Upper and lower extremity strength testing with hand grasp, plantarflexion, and extension at the elbow, lifting up her hips, bending at the knees and plantar and dorsiflexion strength testing are all symmetrical and normal for her age group. She does have a slight resting tremor, left worse than right hand. But with intention the tremor disappears. LABORATORY DATA: CT angiogram of head and neck have been discussed and are normal. CMP is normal. GFR is 60, glucose is 101. INR is 1.1. CBC is normal. Urinalysis is positive for nitrites, white cell clumps, no squamous epithelial cells and a few bacteria. ASSESSMENT/PLAN 1. Episode of expressive aphasia felt to be a TIA. Risk factors for stroke include hyperlipidemia, hypertension, age. Patient is amenable to adding Atorvastatin at this time. PLAN: -Observation status. -ATTESTATION: Patient will be discharged within 96 hours. -Telestroke at [facility] has already been consulted and they recommend dual platelet therapy for the next 90 days in the form of aspirin and Plavix. She can then go to single agent therapy. MRI in the morning. -Echocardiogram was going to be ordered, but since she has had a recent one with mild aortic stenosis, we will hold off on that. Her pattern finisher is Dr. Malcolm. 2. Hypertension. For her quite elevated. When she has had gradually rising blood pressures noted in the PCP office, they have not been a severely elevated. Could be related to anxiety or could be related to a true TIA neurological event and subsequent hypertensive response. Usual treatment for hypertension in association with a neurologic event is permissive hypertension. She has already come down to the level where it is acceptable. Allow up to 180 systolic. Some facilities even low up to 200 systolic. We will evaluate overnight, and add possible low-dose beta kawsi if it is needed. 3. DVT prophylaxis will be ADRIAN cantu. 4. DO NOT RESUSCITATE status. She initially wanted a FULL CODE. I explained what resuscitation meant. When your heart stops and your lungs stop breathing, I would then put you on life support, do chest compressions, possibly shock you, use medications to bring you back. Her concern is that she will end up being disabled after a resuscitative effort. While she does want full treatment for everything including GI bleeds, strokes, heart attacks, hip fractures, antibiotics for pneumonias, etc. She does not want to come back disabled and have to have somebody take care of her. As such, she is a DO NOT RESUSCITATE per her request. TD: 09/19/2018 18:23 MTDZeeshan
[2018-09-19] MEDS: cephALEXin 250 MG CAPSULE PO SCH (20:37)
[2018-09-19] MEDS ORDERED: ATORVASTATIN 40 MG TABLET PO SCH (21:00)
[2018-09-20] MEDS ORDERED: POLYETHYLENE GLYCOL 3350 17 GM PACKET PO SCH (09:00)
[2018-09-20] MEDS ORDERED: ASPIRIN EC 325 MG TABLET PO SCH (09:00)
[2018-09-20] MEDS ORDERED: CLOPIDOGREL 75 MG TABLET PO SCH (09:00)
[2018-09-20] MEDS: cephALEXin 250 MG CAPSULE PO SCH (09:55)
[2018-09-20] MEDS: SODIUM CHLORIDE FLUSH 0.9% 10 ML SYRINGE IVP SCH (09:56)
--- NOTE | 2018-09-20 12:28 | MRI Report ---
Reason: expressive aphasi Procedure Date: 09/20/2018 Accession Number: [id number] / [id number] Procedure: MRI - Brain W/O CPT Code: FULL RESULT: EXAM: MRI BRAIN WITHOUT CONTRAST EXAM DATE: 09/20/2018 11:45 AM. CLINICAL HISTORY: 83-year-old woman with expressive aphasia. Concern for stroke. COMPARISON: HEAD W/O STROKE PROTOCOL 09/19/2018 12:12 PM. TECHNIQUE: Multiplanar, multisequence T1-weighted and fluid-sensitive MR sequences of the brain were performed. Sequences optimized for routine evaluation. Other: None. IV Contrast: None. FINDINGS: Parenchyma: 2 small adjacent foci of restricted diffusion with prominent corresponding FLAIR hyperintensity are present in the anterior left cingulate gyrus subcortical white matter (image 96, series 305), consistent with acute infarct. These measure approximate 4 mm in diameter No evidence of hemorrhage on susceptibility weighted sequence. Otherwise, the parenchyma demonstrates moderate burden of nonspecific FLAIR hyperintensities in the deep cerebral and periventricular white matter as well as the josh, most consistent with sequelae of chronic small vessel ischemic disease and a common finding in this age group. Pituitary: Unremarkable. Ventricles and Extra-axial Spaces: Ventricles are symmetric and normal in size for age. Extra-axial spaces are unremarkable. Orbits: Unremarkable except for bilateral lens replacement surgery. Sinuses: Mild mucosal thickening is present along the floors of the maxillary sinuses bilaterally. There is a left mastoid effusion. Major Vascular Flow Voids: Intact. IMPRESSION: 1. 2 small acute lacunar infarcts in the left anterior cingulate gyrus subcortical white matter. No hemorrhage. 2. Moderate white matter changes, most consistent with sequelae of chronic small vessel ischemic disease in a common finding in this age group. RADIA The call report notification system was initiated by Dr. Norberto Caldera at 12:23 PM on 09/20/2018. ADDENDUM: 09/20/18 12:36 The above call report findings were discussed with Leila Kc by Dr. Norberto Caldera at 12:36 PM on 09/20/2018.
--- NOTE | 2018-09-20 12:46 | Discharge Plan ---
Discharge Plan Problem Reviewed?: Yes Disposition: Home, Self Care Condition: Good Prescriptions: Aspirin [Aspirin EC] 81 mg PO DAILY #100 tablet. Atorvastatin [Lipitor] 40 mg PO QPM #30 tablet cephALEXin [Keflex] 500 mg PO BID #8 capsule Clopidogrel [Plavix] 75 mg PO DAILY #30 tablet Diet: Cardiac Activity Restrictions: Activity as Tolerated Shower Restrictions: No Driving Restrictions: No Instruction Topics: Atorvastatin tablets, Cephalexin tablets or capsules, TIA Health Concerns: You came to the hospital from your doctor's office because of a brief, sudden episode of inability to find words. Your blood pressure was also high at 207-224/80-94 Plan of Treatment: A head CAT scan was negative for stroke. Angiograms of the arteries of your head and neck were also negative for blockages. Unfortunately, an MRI of the brain came back with 2 very, very small pinpoint strokes on the left side brain call the left anterior cingulate gyrus.Your speech is back to normal. And you have no physical deficits or strength deficits at this time. Blood pressure is down to 150/80 before you leave. We did not have to treat it with any medication. There is one study that we did not do since you have had a recent Echocardiogram with Dr. Blake. You do have mild aortic stenosis. Severe aortic stenosis can cause strokes but your disease is so mild that we did not repeat the study since we don't think the stroke is from your valve disease. you were also worried that your essential tremor is linked to this stroke. You were worried that this is the beginning of Parkinson's Disease. I reassured you that there is no link. You have seen a Neurologist twice now and you do not have Par kinson's. The small strokes on the left side of your brain will not cause Parkinson's either. You have a benign essential tremor. The only other new problem we found was a mild urinary tract infection. Care Goals: 1. Please start 3 new medicines to reduce your risk of having another stroke: a cholesterol medicine called atorvastatin, a baby aspirin of 81 mg a day, and p lavix. You will need to take the aspirin and plavix for 30 days and after 30 days have your primary care doctor speak to Neurology about whether you stay on either plavix or aspirin but not both. 2. have blood tests done in 4-6 weeks to check your blood tests (CMP and lipid panel) to check the effects of the atorvastatin. 3. See your primary care provider in followup for your new stroke and to make sure your blood pressure stays down. 4. Complete your antibiotics for the urinary tract infection. You will take 8 more pills twice a day to be done. Assessment: patient understands what happened and what goals are. No Smoking: If you smoke, Please STOP! Call for help. Follow-up with: Gabi Soto PA-C [Primary Care Provider] -
[2018-09-20 16:05] VITALS: BP 172/66
--- NOTE | 2018-09-21 03:16 | DISCHARGE SUMMARY ---
Physician: Leila Kc MD DATE OF ADMISSION: 09/19/2018 DATE OF DISCHARGE: 09/20/2018 DISCHARGE DIAGNOSES 1. Stroke, lacunar infarct, left parietal lobe. 2. Expressive aphasia. 3. Essential hypertension. 4. Urinary tract infection. DISCHARGE MEDICATIONS 1. Vitamin C 500 mg daily. 2. Vitamin D 5000 units daily. 3. Levoxyl 50 mcg daily. 4. Magnesium 250 mg daily. 5. Aspirin 81 mg daily. 6. Lipitor 40 mg daily. 7. Keflex 500 mg p.o. b.i.d. for 4 more days. 8. Plavix 75 mg daily. PRINCIPAL PROCEDURES 1. Head CT is negative. No acute intracranial abnormality. 2. Head and neck CT angiogram. High-grade stenosis greater than 70% of the proximal left middle cerebral artery temporal M2 trunk and additional high-grade stenosis or occlusions of the distal artery. High-grade stenosis greater than 70% of the right STEPHANIE A1 segment. [id number] stenosis of the left RDA. Mild narrowing of the right ICA supraclinoid segment. 3. Brain MRI with two small acute lacunar infarcts in the left anterior cingulate gyrus subcortical matter. No hemorrhage. Moderate white matter disease. 4. Urine C and S with gram-negative rods at the time of discharge, final culture and sensitivity pending. HOSPITAL COURSE: This is a dave 83-year-old female who stroke risk is age, hypertension, hyperlipidemia. She had an abrupt episode of expressive aphasia during lunch. She went to go see her primary care provider, who promptly call an ambulance and she was brought to the emergency room. In our emergency room, she had severe systolic hypertension. CT of the head was negative, and CT angiogram showed high-grade stenosis. Dr. Crane, in the emergency room, spoke to Dr. Aldridge at [facility]. They do not feel that anything interventional has to be offered regarding the stenosis at this time, but he recommended Plavix and aspirin for the next 90 days. She should be placed in observation for TIA workup including echo, cardiac monitoring. After 90 days, she should be on Plavix alone. He agreed with permissive hypertension. She was placed on Keflex for a UTI noted on her admission urinalysis with her history of multiple antibiotic allergies. She does have a history of aortic stenosis, but it is felt to be mild. She is followed by Dr. Blake [facility]. Her echocardiogram was done recently. The patient had already had resolution of her aphasia by the time she got to her doctor's office. Her blood pressure was initially over 200 systolic. By the time of discharge, she was 154. She has been started on Plavix and aspirin. That is to be for the next 90 days. She is to complete four more days of p.o. Keflex for gram-negative rods growing in her urine. She would be seen in follow up by her primary care provider for her blood pressure, and to reevaluate her for the Plavix and aspirin. This lady already has seen neurology twice for an essential tremor. She was fearful that this stroke was going to give her Parkinson's disease, and I reassured her that it would not. She should be sent for a second opinion regarding vascular intervention in view of symptomatic high-grade stenosis. At discharge, temperature is 36.5, pulse is 85, blood pressure is 154/76, respirations 18, O2 saturation 97% on room air. She is a delightful, alert, oriented, elderly female, who looks her stated age. At this time, she has no cranial nerve deficits other than slight deafness. Romberg is positive. [id number] is positive. She has a resting tremor at rest. It disappears with movement. But she has no focal deficits, no facial asymmetry, speech is normal and word finding is normal. TD: 09/20/2018 18:14 MTDD
== END 2018-09-20 14:18 | disposition home or self-care (01) ==
LOC: EDUNIT# → ED 12:08 → MS2 14:43
PROVIDERS: ADMIT Specialist; ATTEND Specialist
DX: I63.81 Other cerebral infarction due to occlusion or stenosis of small artery (principal); R47.01 Aphasia; R40.2412 Glasgow coma scale score 13-15, at arrival to emergency department; R29.700 NIHSS score 0; I10 Essential (primary) hypertension; N39.0 Urinary tract infection, site not specified; I66.02 Occlusion and stenosis of left middle cerebral artery; I66.11 Occlusion and stenosis of right anterior cerebral artery; I66.22 Occlusion and stenosis of left posterior cerebral artery; I35.0 Nonrheumatic aortic (valve) stenosis; E78.5 Hyperlipidemia, unspecified; G25.0 Essential tremor; E03.9 Hypothyroidism, unspecified; K21.9 Gastro-esophageal reflux disease without esophagitis; F41.9 Anxiety disorder, unspecified; Z88.1 Allergy status to other antibiotic agents; Z91.81 History of falling; Z86.69 Personal history of other diseases of the nervous system and sense organs; Z66 Do not resuscitate; Z87.448 Personal history of other diseases of urinary system
CPT/HCPCS: 36415; 70450; 70496; 70498; 70551; 80053; 81001; 83690; 85025; 85610; 87077; 87086; 87181; 93005; 96360; 97161; 99284; 99285; A9270; G0378; Q9967; 81003

== ENCOUNTER 2018-10-03 12:14 | Outpatient (CLI) | payer MEDICARE, OTHER | END 2018-10-03 23:59 | disposition home or self-care (01) | LOC: LAB.R 12:14 | PROVIDERS: ATTEND Physician Assistant Medical | DX: N39.0 Urinary tract infection, site not specified (principal) | CPT/HCPCS: 87086 ==

== ENCOUNTER 2018-11-12 08:00 | Outpatient (CLI) | payer MEDICARE, OTHER | END 2018-11-12 23:59 | disposition home or self-care (01) | LOC: LAB.R 08:00 | PROVIDERS: ATTEND Physician Assistant Medical | DX: R10.12 Left upper quadrant pain (principal) | CPT/HCPCS: 87086 ==

== ENCOUNTER 2018-11-12 14:17 | Outpatient (CLI) | payer MEDICARE, OTHER ==
[2018-11-12 14:48] LABS: BASOPHILS % (AUTO) 0.3 %; EOSINOPHILS % (AUTO) 0.1 %; HGB - HEMOGLOBIN 12.7 g/dL (12.0-16.0); LYMPHOCYTES # (AUTO) 1.9 10^3/uL (1.5-3.5); LYMPHOCYTES % (AUTO) 13.6 %; MEAN CORPUSCULAR HEMOGLOBIN 28.4 pg (27.0-31.0); MEAN CORPUSCULAR HGB CONC 31.7 g/dL (32.0-36.0); MEAN CORPUSCULAR VOLUME 89.7 fL (81.0-99.0); MEAN PLATELET VOLUME 10.7 fL (7.9-10.8); MONOCYTES % (AUTO) 7.4 %; NEUTROPHILS # (AUTO) 10.8 10^3/uL (1.5-6.6); NEUTROPHILS % (AUTO) 78.2 %; PLT - PLATELET COUNT 261 10^3/uL (130-450); RED BLOOD COUNT 4.47 10^6/uL (4.20-5.40); RED CELL DISTRIBUTION WIDTH 13.3 % (12.0-15.0); WHITE BLOOD COUNT 13.9 x10^3/uL (4.8-10.8)
[2018-11-12] MEDS ORDERED: IOVERSOL 320 50 ML VIAL ONE (14:49)
[2018-11-12] MEDS ORDERED: IOVERSOL 320 100 ML VIAL IVP ONE ×2 (14:50→18:03)
[2018-11-12 15:00] LABS: ALBUMIN 3.9 g/dL (3.2-5.5); ALBUMIN/GLOBULIN RATIO 1.1 (1.0-2.2); BILIRUBIN,TOTAL 0.5 mg/dL (0.2-1.0); CALCIUM 9.8 mg/dL (8.5-10.3); CREATININE 1.2 mg/dL (0.4-1.0); TOTAL PROTEIN 7.4 g/dL (6.7-8.2)
--- NOTE | 2018-11-12 16:32 | CT Report ---
Reason: ABDOMINAL PAIN LEFT UPPER QUADRANT Procedure Date: 11/12/2018 Accession Number: [id number] / [id number] Procedure: CT - Abdomen/Pelvis W CPT Code: FULL RESULT: EXAM: CT ABDOMEN AND PELVIS EXAM DATE: 11/12/2018 04:00 PM. CLINICAL HISTORY: ABDOMINAL PAIN LEFT UPPER QUADRANT. COMPARISONS: None. TECHNIQUE: Routine helical CT imaging was performed through the abdomen and pelvis. IV contrast: OPTI 320 100ML. Enteric contrast: Positive. Reconstructions: Coronal and sagittal. In accordance with CT protocol optimization, one or more of the following dose reduction techniques were utilized for this exam: automated exposure control, adjustment of mA and/or KV based on patient size, or use of iterative reconstructive technique. FINDINGS: Lung Bases: Unremarkable. Liver: Normal. No masses. Gallbladder/Bile Ducts: The gallbladder is surgically absent. Spleen: Normal. Pancreas: Normal. Adrenal Glands: Normal. Kidneys: There is cortical thinning. No acute renal abnormalities. Peritoneal Cavity/Bowel: Stomach and small bowel demonstrate no acute findings. There is moderate left colon diverticulitis. No evidence of perforation or drainable pericolonic abscess. There is a broad paraumbilical hernia into which the transverse colon protrudes. No evidence of associated inflammation or obstruction. The appendix is well visualized and normal. Pelvic Organs: Normal. The bladder and visualized pelvic organs are within normal limits. Vasculature: No aneurysms or other significant abnormality. Bones: No significant abnormality. Other: None. IMPRESSION: There is moderate upper left colon diverticulitis. There is no evidence of perforation or drainable pericolonic abscess. TESS The call report notification system was initiated by Dr. Gilmer Capone at 04:29 PM on 11/12/2018. ADDENDUM: 11/12/18 19:12 The above call report findings were discussed with Gabi Soto by Dr. Gilmer Capone at 05:15 PM on 11/12/2018.
[2018-11-12] MEDS ORDERED: IOVERSOL 320 50 ML VIAL PO ONE (18:03)
== END 2018-11-12 14:18 | disposition home or self-care (01) ==
LOC: DI 14:17
PROVIDERS: ATTEND Physician Assistant Medical
DX: K57.32 Diverticulitis of large intestine without perforation or abscess without bleeding (principal)
CPT/HCPCS: 36415; 74177; 80053; 83690; 85025; 87086; Q9967

== ENCOUNTER 2018-11-19 09:59 | Outpatient (CLI) | payer MEDICARE, OTHER ==
[2018-11-19 19:09] LABS: BASOPHILS # (AUTO) 0.1 10^3/uL (0.0-0.1); EOSINOPHILS # (AUTO) 0.1 10^3/uL (0.0-0.7); EOSINOPHILS % (AUTO) 0.8 %; HGB - HEMOGLOBIN 13.3 g/dL (12.0-16.0); LYMPHOCYTES # (AUTO) 1.8 10^3/uL (1.5-3.5); MEAN CORPUSCULAR HEMOGLOBIN 28.8 pg (27.0-31.0); MEAN CORPUSCULAR HGB CONC 31.1 g/dL (32.0-36.0); MEAN CORPUSCULAR VOLUME 92.6 fL (81.0-99.0); MEAN PLATELET VOLUME 11.1 fL (7.9-10.8); MONOCYTES # (AUTO) 0.6 10^3/uL (0.0-1.0); MONOCYTES % (AUTO) 7.4 %; NEUTROPHILS # (AUTO) 5.4 10^3/uL (1.5-6.6); NEUTROPHILS % (AUTO) 67.4 %; PLT - PLATELET COUNT 405 10^3/uL (130-450); RED BLOOD COUNT 4.62 10^6/uL (4.20-5.40); RED CELL DISTRIBUTION WIDTH 13.2 % (12.0-15.0); WHITE BLOOD COUNT 7.9 x10^3/uL (4.8-10.8)
== END 2018-11-19 23:59 | disposition home or self-care (01) ==
LOC: LAB.WCP 09:59
PROVIDERS: ATTEND Physician Assistant Medical
DX: R10.12 Left upper quadrant pain (principal)
CPT/HCPCS: 36415; 85025

== ENCOUNTER 2018-12-06 10:52 | Outpatient (CLI) | payer MEDICARE, OTHER ==
--- NOTE | 2018-12-10 09:24 | Mammography Report ---
Reason: SCREENING MAMMO Procedure Date: 12/06/2018 Accession Number: [id number] / [id number] Procedure: MGN - Screening Mammo Dig Bilat CPT Code: FULL RESULT: EXAM: Screening Mammo Dig Bilat DATE: 12/06/2018 11:20 AM CLINICAL HISTORY: Screening encounter. History of benign breast biopsy bilaterally. TECHNIQUE: (B) - Bilateral CC and MLO views were obtained. COMPARISON: 11/16/2017 through 04/30/2010. PARENCHYMAL PATTERN: (A) - The breast(s) demonstrate(s) scattered fibroglandular densities. FINDINGS: There are coarse typically benign calcifications. There are typically benign vascular calcifications. There are no suspicious masses, calcifications, or areas of distortion. IMPRESSION: Benign findings. BI-RADS category 2. RECOMMENDATION: (ANNUAL) - Recommend routine annual screening mammography. BI-RADS CATEGORY: (2) - Benign Findings. STANDARD QUALIFYING STATEMENTS: 1. This examination was not reviewed with the aid of Computer-Aided Detection (CAD). 2. A negative or benign imaging report should not preclude biopsy if clinically suspicious findings are present. 3. Dense breasts may obscure an underlying neoplasm. 4. This examination was reviewed without the aid of 3D breast imaging (tomosynthesis).
== END 2018-12-06 10:53 | disposition home or self-care (01) ==
LOC: DI.N 10:52
DX: Z12.31 Encounter for screening mammogram for malignant neoplasm of breast (principal)
CPT/HCPCS: 77067

== ENCOUNTER 2018-12-09 09:16 | Emergency (ER) | payer MEDICARE, OTHER ==
[2018-12-09 09:23] VITALS: BP 147/78
--- NOTE | 2018-12-09 11:33 | ED Physician Documentation ---
PD HPI SKIN - Stated complaint Stated Complaint: RASH ON ABD - Chief complaint Chief Complaint: Wound - History obtained from History obtained from: Patient - History of Present Illness Timing - onset: Today (this morning) Timing - duration: Hours (a few horus) Severity Comments: moderate Location: Abdomen Quality / character: Itchy. No: Painful, Burning, Discolored, Raised, Vesicular, Crusted, Swelling, Draining Improved by: Other (nothing) Worsened by (comment): COMMENT (nothing) Associated symptoms: No: Fever, Myalgias, Joint pain, Headache, Facial swelling, Dyspnea, Abd pain, N/V/D, Urinary sx Contributing factors: Exposed to medication (patient just finished a course of cipro and flagyl for diverticulitis) Similar symptoms before: Other (had shingles before but this does not look like her shingles) - Treatment prior to arrival Treatment prior to arrival: none Review of Systems Ten Systems: 10 systems reviewed and negative Constitutional: denies: Fever, Chills Nose: reports: Reviewed and negative Throat: reports: Reviewed and negative Cardiac: reports: Reviewed and negative Respiratory: reports: Reviewed and negative GI: reports: Reviewed and negative : reports: Reviewed and negative Skin: reports: Rash Musculoskeletal: reports: Reviewed and negative Neurologic: reports: Reviewed and negative Immunocompromised: reports: Reviewed and negative PD PAST MEDICAL HISTORY - Past Medical History Past Medical History: Yes Cardiovascular: Hypertension, High cholesterol Neuro: TIA Endocrine/Autoimmune: HyPOthyroidism GI: GERD, Hiatal hernia, Diverticulitis : Incontinence Psych: Anxiety Musculoskeletal: Osteopenia - Past Surgical History General: Cholecystectomy, Bowel surgery, Colonoscopy, 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 09/20/18 Atorvastatin [Lipitor] 40 mg PO QPM #30 tablet 09/20/18 Clopidogrel [Plavix] 75 mg PO DAILY #30 tablet 09/20/18 cephALEXin [Keflex] 500 mg PO BID #8 capsule 09/20/18 - Allergies Allergies/Adverse Reactions: Allergies Allergy/AdvReac Type Severity Reaction Status Date / Time alendronate sodium Allergy Unknown Verified 12/09/18 09:24 [From Fosamax] amoxicillin Allergy Hives Verified 12/09/18 09:24 nitrofurantoin Allergy Unknown Verified 12/09/18 09:24 [From Macrobid] nitrofurantoin Allergy Unknown Verified 12/09/18 09:24 macrocrystalline * [From Macrobid] Penicillins Allergy Unknown Verified 12/09/18 09:24 rosuvastatin calcium * Allergy Unknown Verified 12/09/18 09:24 [From Crestor] Sulfa (Sulfonamide Allergy Unknown Verified 12/09/18 09:24 Antibiotics) - Social History Does the pt smoke?: No Smoking Status: Never smoker PD ED PE NORMAL - Vitals Vital signs reviewed: Yes - General General: Alert and oriented X 3, Well developed/nourished - HEENT HEENT: Atraumatic, Moist mucous membranes, Pharynx benign - Neck Neck: Supple, no meningeal sign - Cardiac Cardiac: RRR - Respiratory Respiratory: No respiratory distress - Abdomen Abdomen: Soft, Non tender, Non distended, Other (macular rash over mid upper abdomen diffusely ) - Female Female : Deferred - Rectal Rectal: Deferred - Derm Derm: Warm and dry - Extremities Extremities: No deformity - Neuro Neuro: Alert and oriented X 3 Eye Opening: Spontaneous Motor: Obeys Commands Verbal: Oriented GCS Score: 15 - Psych Psych: Normal mood, Normal affect PD ED PE EXPANDED - Derm Derm: Other (macular rash over mid abdomen, blanching, not petechial ) Results - Vitals Vitals: Vital Signs - 24 hr 12/09/18 09:20 Temperature 37 C Heart Rate 87 Respiratory 17 Rate Blood Pressure 147/78 H O2 Saturation 99 Oxygen O2 Source Room air PD MEDICAL DECISION MAKING - ED course Complexity details: considered differential, d/w patient ED course: ddx- drug rash, shingles, allergic reaction, viral rash, nonspecific rash, eczema, pityriasis rosea 83 y/o F with itchy diffuse rash across abdomen after finishing cipro and flagyl for diverticulitis. Rash appears mild, is macular, blanching and not petechial. Pt is on plavix but has no significant bruising or signs of bleeding. The rash is itchy this may be a drug rash. However she is well appearing afebrile and is stable for an outpt trial of benadryl and topical OTC steroids. Pt given return precautions if fever or worsening symptoms. Departure - Departure Disposition: 01 Home, Self Care Clinical Impression: Drug-induced skin rash Condition: Stable Record reviewed to determine appropriate education?: Yes Comments: You can take benadryl for itching and over the counter hydrocortisone for your rash. Discharge Date/Time: 12/09/18 11:35
== END 2018-12-09 11:35 | disposition home or self-care (01) ==
LOC: ED 09:16
DX: L27.0 Generalized skin eruption due to drugs and medicaments taken internally (principal); T36.8X5A Adverse effect of other systemic antibiotics, initial encounter; T37.3X5A Adverse effect of other antiprotozoal drugs, initial encounter; K57.92 Diverticulitis of intestine, part unspecified, without perforation or abscess without bleeding; I10 Essential (primary) hypertension; Z79.02 Long term (current) use of antithrombotics/antiplatelets; Z79.82 Long term (current) use of aspirin
CPT/HCPCS: 99281; 99282

== ENCOUNTER 2019-01-02 17:18 | Outpatient (CLI) | payer MEDICARE, OTHER | END 2019-01-02 23:59 | disposition home or self-care (01) | LOC: LAB.R 17:18 | PROVIDERS: ATTEND Physician Assistant Medical | DX: N39.0 Urinary tract infection, site not specified (principal) | CPT/HCPCS: 87086; 87181 ==

== ENCOUNTER 2019-05-28 08:00 | Outpatient (CLI) | payer MEDICARE, OTHER ==
[2019-05-28 17:20] LABS: ALBUMIN 4.1 g/dL (3.2-5.5); ALBUMIN/GLOBULIN RATIO 1.6 (1.0-2.2); ALKALINE PHOSPHATASE 56 IU/L (42-121); ALT ALANINE AMINOTRANSFERASE 16 IU/L (10-60); AST ASPARTATE AMINOTRANSFERASE 17 IU/L (10-42); BILIRUBIN,TOTAL 0.8 mg/dL (0.2-1.0); BUN - BLOOD UREA NITROGEN 12 mg/dL (6-20); CALCIUM 9.2 mg/dL (8.5-10.3); CARBON DIOXIDE - CO2 26 mmol/L (21-32); CHLORIDE 104 mmol/L (101-111); CHOLESTEROL 295 mg/dL; CREATININE 1.1 mg/dL (0.4-1.0); GLUCOSE 91 mg/dL (70-100); HDL CHOLESTEROL 59 mg/dL; LDL CHOLESTEROL,CALCULATED 200 mg/dL; LDL/HDL RATIO 3.4 (<4.4); SODIUM 139 mmol/L (135-145); TOTAL PROTEIN 6.7 g/dL (6.7-8.2); VLDL CHOLESTEROL 36 mg/dL
== END 2019-05-28 23:59 | disposition home or self-care (01) ==
LOC: LAB.WCP 08:00
PROVIDERS: ATTEND Physician Assistant Medical
DX: I63.9 Cerebral infarction, unspecified (principal); E78.5 Hyperlipidemia, unspecified; E03.9 Hypothyroidism, unspecified
CPT/HCPCS: 36415; 80053; 80061; 83721; 84443

== ENCOUNTER 2019-11-28 11:38 | Outpatient (CLI) | payer MEDICARE, OTHER ==
[2019-11-28 18:35] LABS: BASOPHILS # (AUTO) 0.1 10^3/uL (0.0-0.1); BASOPHILS % (AUTO) 1.1 %; EOSINOPHILS # (AUTO) 0.1 10^3/uL (0.0-0.7); EOSINOPHILS % (AUTO) 1.4 %; HGB - HEMOGLOBIN 13.8 g/dL (12.0-16.0); LYMPHOCYTES # (AUTO) 2.2 10^3/uL (1.5-3.5); LYMPHOCYTES % (AUTO) 30.5 %; MEAN CORPUSCULAR HEMOGLOBIN 28.6 pg (27.0-31.0); MEAN CORPUSCULAR HGB CONC 30.9 g/dL (32.0-36.0); MEAN CORPUSCULAR VOLUME 92.5 fL (81.0-99.0); MEAN PLATELET VOLUME 11.2 fL (7.9-10.8); MONOCYTES # (AUTO) 0.6 10^3/uL (0.0-1.0); MONOCYTES % (AUTO) 8.5 %; NEUTROPHILS # (AUTO) 4.1 10^3/uL (1.5-6.6); NEUTROPHILS % (AUTO) 57.8 %; PLT - PLATELET COUNT 302 10^3/uL (130-450); RED BLOOD COUNT 4.82 10^6/uL (4.20-5.40); RED CELL DISTRIBUTION WIDTH 13.8 % (12.0-15.0); WHITE BLOOD COUNT 7.2 x10^3/uL (4.8-10.8)
[2019-11-28 18:44] LABS: ALBUMIN 4.1 g/dL (3.2-5.5); ALBUMIN/GLOBULIN RATIO 1.5 (1.0-2.2); ALKALINE PHOSPHATASE 73 IU/L (42-121); ALT ALANINE AMINOTRANSFERASE 14 IU/L (10-60); AST ASPARTATE AMINOTRANSFERASE 18 IU/L (10-42); BILIRUBIN,TOTAL 0.7 mg/dL (0.2-1.0); BUN - BLOOD UREA NITROGEN 16 mg/dL (6-20); CALCIUM 9.3 mg/dL (8.5-10.3); CARBON DIOXIDE - CO2 29 mmol/L (21-32); CHLORIDE 107 mmol/L (101-111); CHOL/HDL RATIO 4.6 (<4.4); CHOLESTEROL 265 mg/dL; CREATININE 1.1 mg/dL (0.4-1.0); GLUCOSE 104 mg/dL (70-100); HDL CHOLESTEROL 58 mg/dL; LDL CHOLESTEROL,CALCULATED 183 mg/dL; LDL/HDL RATIO 3.2 (<4.4); SODIUM 142 mmol/L (135-145); TOTAL PROTEIN 6.9 g/dL (6.7-8.2); VLDL CHOLESTEROL 24 mg/dL
== END 2019-11-28 23:59 | disposition home or self-care (01) ==
LOC: LAB.WCP 11:38
PROVIDERS: ATTEND Physician Assistant Medical
DX: I63.9 Cerebral infarction, unspecified (principal)
CPT/HCPCS: 36415; 80053; 80061; 83721; 85025

== ENCOUNTER 2019-12-18 12:38 | Outpatient (CLI) | payer MEDICARE, OTHER ==
--- NOTE | 2019-12-18 14:55 | DEXA Report ---
PROCEDURE: Dexa Spine and/or Hip INDICATIONS: POST MENOPAUSAL TECHNIQUE: Dual energy x-ray absorptiometry (DXA) was performed on a Overdog System. Regions measur ed are the AP Spine, femoral neck, and if needed forearm. COMPARISON: None. FINDINGS: Lumbar Spine: Bone Mineral Density 1.067 g/cm/cm,T score -0.9, normal Left Hip: Bone Mineral Density 0.736 g/cm/cm,T score -2.2, osteopenia Left Femoral Neck: Bone Mineral Density 0.725 g/cm/cm, T score -2.2, osteopenia (T score greater or equal to -1.0: NORMAL) (T score from -1.1 to -2.4: OSTEOPENIA) (T score less than or equal to -2.5 to: OSTEOPOROSIS) Impression: Normal bone mineral density of the lumbosacral spine but osteopenia is present at the lef t hip and focally at the left femoral neck. Patients with diagnosis of osteoporosis or osteopenia should have regular bone mineral density assess ment. For those eligible for Medicare, routine testing is allowed once every 2 years. Testing frequ ency can be increased for patients who have rapidly progressing disease or for those who are receivin g medical therapy to restore bone mass. Reviewed by: Devon Deal MD on 12/18/2019 2:54 PM PDT Approved by: Devon Deal MD on 12/18/2019 2:54 PM PDT Station ID: [id number]
== END 2019-12-18 12:39 | disposition home or self-care (01) ==
LOC: DI 12:38
PROVIDERS: ATTEND Physician Assistant Medical
DX: M85.89 Other specified disorders of bone density and structure, multiple sites (principal); I51.7 Cardiomegaly; I35.0 Nonrheumatic aortic (valve) stenosis; I49.3 Ventricular premature depolarization
CPT/HCPCS: 77080; 93306

== ENCOUNTER 2019-12-18 12:40 | Outpatient (CLI) | payer MEDICARE, OTHER | END 2019-12-18 12:41 | disposition home or self-care (01) | LOC: DI 12:40 | PROVIDERS: ATTEND Physician Assistant Medical | DX: I51.7 Cardiomegaly (principal); I35.0 Nonrheumatic aortic (valve) stenosis; I49.3 Ventricular premature depolarization | CPT/HCPCS: 93306 ==

== ENCOUNTER 2020-04-10 08:00 | Outpatient (CLI) | payer MEDICARE, OTHER | END 2020-04-10 23:59 | disposition home or self-care (01) | LOC: LAB.WCP 08:00 | PROVIDERS: ATTEND Physician Assistant Medical | DX: E03.9 Hypothyroidism, unspecified (principal) | CPT/HCPCS: 36415; 84443 ==

== ENCOUNTER 2020-10-22 08:00 | Outpatient (CLI) | payer MEDICARE, OTHER ==
[2020-10-22 18:25] LABS: BASOPHILS # (AUTO) 0.1 10^3/uL (0.0-0.1); BASOPHILS % (AUTO) 0.9 %; EOSINOPHILS # (AUTO) 0.1 10^3/uL (0.0-0.7); EOSINOPHILS % (AUTO) 1.3 %; HGB - HEMOGLOBIN 13.6 g/dL (12.0-16.0); LYMPHOCYTES # (AUTO) 2.3 10^3/uL (1.5-3.5); LYMPHOCYTES % (AUTO) 33.1 %; MEAN CORPUSCULAR HEMOGLOBIN 29.3 pg (27.0-31.0); MEAN CORPUSCULAR HGB CONC 31.6 g/dL (32.0-36.0); MEAN CORPUSCULAR VOLUME 92.7 fL (81.0-99.0); MEAN PLATELET VOLUME 11.9 fL (7.9-10.8); MONOCYTES # (AUTO) 0.6 10^3/uL (0.0-1.0); NEUTROPHILS # (AUTO) 3.9 10^3/uL (1.5-6.6); NEUTROPHILS % (AUTO) 56.4 %; PLT - PLATELET COUNT 304 10^3/uL (130-450); RED BLOOD COUNT 4.64 10^6/uL (4.20-5.40); RED CELL DISTRIBUTION WIDTH 13.9 % (12.0-15.0)
[2020-10-22 18:44] LABS: ALBUMIN 4.1 g/dL (3.2-5.5); ALBUMIN/GLOBULIN RATIO 1.5 (1.0-2.2); ALKALINE PHOSPHATASE 66 IU/L (42-121); ALT ALANINE AMINOTRANSFERASE 15 IU/L (10-60); AST ASPARTATE AMINOTRANSFERASE 19 IU/L (10-42); BILIRUBIN,TOTAL 0.9 mg/dL (0.2-1.0); BUN - BLOOD UREA NITROGEN 18 mg/dL (6-20); CALCIUM 9.4 mg/dL (8.5-10.3); CARBON DIOXIDE - CO2 29 mmol/L (21-32); CHLORIDE 103 mmol/L (101-111); CHOLESTEROL 284 mg/dL; GFR - MDRD 53 (>89); GLUCOSE 104 mg/dL (70-100); HDL CHOLESTEROL 57 mg/dL; LDL CHOLESTEROL,CALCULATED 198 mg/dL; LDL/HDL RATIO 3.5 (<4.4); POTASSIUM 4.3 mmol/L (3.5-5.0); SODIUM 139 mmol/L (135-145); TOTAL PROTEIN 6.9 g/dL (6.7-8.2); TRIGLYCERIDES 146 mg/dL; VLDL CHOLESTEROL 29 mg/dL
[2020-10-22 18:46] LABS: THYROID STIMULATING HORMONE 2.02 uIU/mL (0.34-5.60)
== END 2020-10-22 23:59 | disposition home or self-care (01) ==
LOC: LAB.WCP 08:00
PROVIDERS: ATTEND Physician Assistant Medical
DX: E78.5 Hyperlipidemia, unspecified (principal); G25.0 Essential tremor; E03.9 Hypothyroidism, unspecified; I63.9 Cerebral infarction, unspecified
CPT/HCPCS: 36415; 80053; 80061; 82607; 83721; 84443; 85025

== ENCOUNTER 2021-07-01 10:30 | Outpatient (CLI) | payer MEDICARE, OTHER ==
[2021-07-01 13:11] LABS: BASOPHILS # (AUTO) 0.1 10^3/uL (0.0-0.1); BASOPHILS % (AUTO) 0.8 %; EOSINOPHILS # (AUTO) 0.1 10^3/uL (0.0-0.7); EOSINOPHILS % (AUTO) 0.8 %; HCT - HEMATOCRIT 43.3 % (37.0-47.0); HGB - HEMOGLOBIN 13.8 g/dL (12.0-16.0); LYMPHOCYTES # (AUTO) 1.9 10^3/uL (1.5-3.5); MEAN CORPUSCULAR HEMOGLOBIN 28.8 pg (27.0-31.0); MEAN CORPUSCULAR HGB CONC 31.9 g/dL (32.0-36.0); MEAN CORPUSCULAR VOLUME 90.2 fL (81.0-99.0); MEAN PLATELET VOLUME 12.2 fL (7.9-10.8); MONOCYTES # (AUTO) 0.5 10^3/uL (0.0-1.0); NEUTROPHILS # (AUTO) 4.6 10^3/uL (1.5-6.6); NEUTROPHILS % (AUTO) 64.3 %; PLT - PLATELET COUNT 311 10^3/uL (130-450); RED CELL DISTRIBUTION WIDTH 13.1 % (12.0-15.0); WHITE BLOOD COUNT 7.2 x10^3/uL (4.8-10.8)
[2021-07-01 13:38] LABS: ALBUMIN 4.3 g/dL (3.2-5.5); ALBUMIN/GLOBULIN RATIO 1.5 (1.0-2.2); ALKALINE PHOSPHATASE 66 IU/L (42-121); ALT ALANINE AMINOTRANSFERASE 12 IU/L (10-60); AST ASPARTATE AMINOTRANSFERASE 17 IU/L (10-42); BUN - BLOOD UREA NITROGEN 15 mg/dL (6-20); CALCIUM 9.5 mg/dL (8.5-10.3); CARBON DIOXIDE - CO2 29 mmol/L (21-32); CHLORIDE 102 mmol/L (101-111); CHOL/HDL RATIO 5.3 (<4.4); CHOLESTEROL 279 mg/dL; CREATININE 1.1 mg/dL (0.4-1.0); GFR - MDRD 47 (>89); GLUCOSE 109 mg/dL (70-100); HDL CHOLESTEROL 53 mg/dL; LDL CHOLESTEROL,CALCULATED 195 mg/dL; LDL/HDL RATIO 3.7 (<4.4); POTASSIUM 4.3 mmol/L (3.5-5.0); SODIUM 141 mmol/L (135-145); TOTAL PROTEIN 7.2 g/dL (6.7-8.2); TRIGLYCERIDES 153 mg/dL; VLDL CHOLESTEROL 31 mg/dL
[2021-07-01 13:48] LABS: THYROID STIMULATING HORMONE 2.68 uIU/mL (0.34-5.60)
== END 2021-07-01 10:31 | disposition home or self-care (01) ==
LOC: LAB.N 10:30
PROVIDERS: ATTEND Physician Assistant Medical
DX: E78.5 Hyperlipidemia, unspecified (principal); E03.9 Hypothyroidism, unspecified; I10 Essential (primary) hypertension
CPT/HCPCS: 36415; 80053; 80061; 83721; 84443; 85025

== ENCOUNTER 2021-07-20 14:00 | Outpatient (CLI) | payer MEDICARE, OTHER ==
--- NOTE | 2021-07-20 17:11 | Ultrasound Report ---
PROCEDURE: Ankle Brachial Index INDICATIONS: COLD FEET TECHNIQUE: Ankle-brachial indices were obtained bilaterally and recorded. COMPARISONS: None. FINDINGS: Right ankle brachial index (TOMAS): 0.82, brachial blood pressure 146/61, ankle blood pressure 121/65 Left ankle brachial index (TOMAS): 0.96, brachial blood pressure 147/53, ankle pressure 142/58. Healing potential: Ankle pressures >55 mm Hg in non-diabetics and >80 mm Hg in diabetics are likely to achieve primary h ealing of ischemic foot ulcers. Toe pressures >30 mm Hg are likely to achieve primary healing of ischemic foot ulcers, toe or transme tatarsal amputations. IMPRESSION: Mild arterial disease noted on the right. Normal TOMAS on the left. Reviewed by: Cari Limon MD on 07/20/2021 5:10 PM PDT Approved by: Cari Limon MD on 07/20/2021 5:10 PM PDT Station ID: [id number]
== END 2021-07-20 14:01 | disposition home or self-care (01) ==
LOC: DI 14:00
PROVIDERS: ATTEND Physician Assistant Medical
DX: I70.201 Unspecified atherosclerosis of native arteries of extremities, right leg (principal)
CPT/HCPCS: 93922

== ENCOUNTER 2021-09-13 15:20 | Outpatient (CLI) | payer MEDICARE, OTHER ==
--- NOTE | 2021-09-21 08:47 | Mammography Report ---
BILATERAL DIGITAL SCREENING MAMMOGRAM 3D/2D: 09/13/2021 CLINICAL: Routine screening. Comparison is made to exams dated: 12/06/2018 mammogram, 11/24/2017 mammogram, 05/17/2016 mammogram, mammogram, 01/27/2014 mammogram, and 07/06/2011 mammogram - [facility]. Ther e are scattered fibroglandular elements in both breasts. There are benign calcifications in both breasts. No significant masses, calcifications, or other findings are seen in either breast. There has been no significant interval change. IMPRESSION: BENIGN There is no mammographic evidence of malignancy. A 1 year screening mammogram is recommended. Based on the Tyrer Cuzick model (a risk assessment model) the patients lifetime risk is % and her 10 year risk is %. According to the ACR, ACS, and NCCN guidelines, an annual breast MRI exam along with mammogram is recommended if the patients lifetime risk is 20% or greater. This exam was interpreted at Station ID: [id number]. NOTE: For mammograms, a report in lay terms will be sent to the patient. Approximately 15% of breast malignancies will not be visualized mammographically. In the management of a palpable breast mass, a negative mammogram must not discourage biopsy of a clinically suspicious lesion. Electronically Signed By: Alexis azevedo/marlen:09/20/2021 09:17:19 ACR BI-RADS Category 2: Benign Finding(s) 3342F PARENCHYMAL PATTERN: (A) - The breast(s) demonstrate(s) scattered fibroglandular densities. BI-RADS CATEGORY: (2) - 2 RECOMMENDATION: (ANNUAL) - Recommend routine annual screening mammography. [id number] 1 year screening LATERALITY: (B)
== END 2021-09-13 15:21 | disposition home or self-care (01) ==
LOC: DI.N 15:20
DX: Z12.31 Encounter for screening mammogram for malignant neoplasm of breast (principal)

== ENCOUNTER 2022-03-01 11:13 | Outpatient (CLI) | payer MEDICARE, OTHER ==
[2022-03-01 18:15] LABS: ALBUMIN/GLOBULIN RATIO 1.3 (1.0-2.2); ALKALINE PHOSPHATASE 63 IU/L (42-121); ALT ALANINE AMINOTRANSFERASE 13 IU/L (10-60); AST ASPARTATE AMINOTRANSFERASE 16 IU/L (10-42); BILIRUBIN,TOTAL 0.8 mg/dL (0.2-1.0); BUN - BLOOD UREA NITROGEN 17 mg/dL (6-20); CALCIUM 9.2 mg/dL (8.5-10.3); CARBON DIOXIDE - CO2 29 mmol/L (21-32); CHLORIDE 98 mmol/L (101-111); CHOL/HDL RATIO 5.2 (<4.4); CHOLESTEROL 327 mg/dL; GFR - MDRD 52 (>89); GLUCOSE 115 mg/dL (70-100); HDL CHOLESTEROL 63 mg/dL; LDL CHOLESTEROL,CALCULATED 239 mg/dL; LDL/HDL RATIO 3.8 (<4.4); MAGNESIUM 2.1 mg/dL (1.7-2.8); POTASSIUM 3.8 mmol/L (3.5-5.0); SODIUM 136 mmol/L (135-145); TRIGLYCERIDES 127 mg/dL; VLDL CHOLESTEROL 25 mg/dL
[2022-03-01 18:19] LABS: THYROID STIMULATING HORMONE 4.13 uIU/mL (0.34-5.60)
== END 2022-03-01 11:14 | disposition home or self-care (01) ==
LOC: LAB.N 11:13
PROVIDERS: ATTEND Physician Assistant Medical
DX: E78.5 Hyperlipidemia, unspecified (principal); I35.0 Nonrheumatic aortic (valve) stenosis; I63.9 Cerebral infarction, unspecified; E03.9 Hypothyroidism, unspecified
CPT/HCPCS: 36415; 80053; 80061; 83721; 83735; 84443

== ENCOUNTER 2022-05-25 08:27 | Outpatient (CLI) | payer MEDICARE, OTHER ==
--- NOTE | 2022-05-25 13:14 | Ultrasound Report ---
PROCEDURE: Duplex Lwr Ext Arterial Bilat INDICATIONS: PAD TECHNIQUE: Color and pulse Doppler interrogation was performed of both lower extremity arterial systems, with im age documentation. COMPARISON: 11/09/2021 FINDINGS: Right lower extremity: Common femoral artery: 186 cm/sec, with triphasic flow. Deep femoral artery: 90 cm/sec, with triphasic flow. Proximal superficial femoral artery: 97 cm/sec, with triphasic flow. Mid superficial femoral artery: 79 cm/sec, with triphasic flow. Distal superficial femoral artery: 63 cm/sec, with triphasic flow. Popliteal artery: 52 cm/sec, with triphasic flow. Posterior tibial artery: 350 cm/sec, with biphasic flow. Anterior tibial artery/dorsalis pedis: 71/53 cm/sec, with triphasic flow. Richter-scale imaging description: Scattered calcific plaque. Small Stone's cyst. Left lower extremity: Common femoral artery: 172 cm/sec, with triphasic flow. Deep femoral artery: 77 cm/sec, with triphasic flow. Proximal superficial femoral artery: 81 cm/sec, with triphasic flow. Mid superficial femoral artery: 85 cm/sec, with triphasic flow. Distal superficial femoral artery: 75 cm/sec, with triphasic flow. Popliteal artery: 79 cm/sec, with triphasic flow. Posterior tibial artery: 490 cm/sec, with biphasic flow. Anterior tibial artery/dorsalis pedis: 55/85 cm/sec, with triphasic flow. Richter-scale imaging description: Scattered calcific plaque. IMPRESSION: 1. Focal elevated velocity in the posterior tibial artery consistent with hemodynamically significant stenosis. 2. Focal elevated velocity in the left posterior tibial artery consistent with hemodynamically signif icant stenosis. 3. No significant stenosis at or above the knee bilaterally. Reviewed by: Franco Ledesma on 05/25/2022 1:13 PM PDT Approved by: Franco Ledesma on 05/25/2022 1:13 PM PDT Station ID: [id number]
--- NOTE | 2022-05-25 13:15 | Ultrasound Report ---
PROCEDURE: Ankle Brachial Index INDICATIONS: PAD TECHNIQUE: Ankle-brachial indices were obtained bilaterally and recorded. COMPARISONS: None. FINDINGS: Right ankle brachial index (TOMAS): 1.0 Left ankle brachial index (TOMAS): 1.0 Healing potential: Ankle pressures >55 mm Hg in non-diabetics and >80 mm Hg in diabetics are likely to achieve primary h ealing of ischemic foot ulcers. Toe pressures >30 mm Hg are likely to achieve primary healing of ischemic foot ulcers, toe or transme tatarsal amputations. IMPRESSION: Normal ABIs bilaterally. Reviewed by: Franco Ledesma on 05/25/2022 1:13 PM PDT Approved by: Franco Ledesma on 05/25/2022 1:13 PM PDT Station ID: [id number]
== END 2022-05-25 08:28 | disposition home or self-care (01) ==
LOC: DI 08:27
PROVIDERS: ATTEND Physician Assistant Medical
DX: I73.9 Peripheral vascular disease, unspecified (principal)
CPT/HCPCS: 93922; 93925

== ENCOUNTER 2022-09-01 10:31 | Outpatient (CLI) | payer MEDICARE, OTHER ==
[2022-09-01 12:22] LABS: ALBUMIN 4.1 g/dL (3.2-5.5); ALBUMIN/GLOBULIN RATIO 1.4 (1.0-2.2); BILIRUBIN,TOTAL 0.6 mg/dL (0.2-1.0); CALCIUM 9.6 mg/dL (8.5-10.3); CREATININE 1.2 mg/dL (0.4-1.0); POTASSIUM 4.3 mmol/L (3.5-5.0)
[2022-09-01 12:48] LABS: ESTIMATED AVERAGE GLUCOSE 117 mg/dL (70-100); HEMOGLOBIN A1c% 5.7 % (4.27-6.07)
== END 2022-09-01 23:59 | disposition home or self-care (01) ==
LOC: LAB.N 10:31
PROVIDERS: ATTEND Physician Assistant Medical
DX: R73.01 Impaired fasting glucose (principal)
CPT/HCPCS: 36415; 80053; 83036

== ENCOUNTER 2022-09-08 12:57 | Outpatient (CLI) | payer MEDICARE, OTHER ==
--- NOTE | 2022-09-09 08:51 | Mammography Report ---
BILATERAL DIGITAL SCREENING MAMMOGRAM 3D/2D: 09/08/2022 CLINICAL: Family history of breast cancer. Routine screening. Comparison is made to exams dated: 09/13/2021 mammogram, 12/06/2018 mammogram, 11/24/2017 mammogram, mammogram, 03/23/2015 mammogram, and 01/27/2014 mammogram - [facility]. There are scattered areas of fibroglandular density in both breasts (category b / 25%-50% glandular t issue). There are stable benign calcifications in both breasts. There also are stable benign vascular calcif ications in both breasts. No significant masses, calcifications, or other findings are seen in either breast. There has been no significant interval change. IMPRESSION: BENIGN There is no mammographic evidence of malignancy. A 1 year screening mammogram is recommended. This exam was interpreted at Station ID: [id number]. NOTE: For mammograms, a report in lay terms will be sent to the patient. Approximately 15% of breast malignancies will not be visualized mammographically. In the management of a palpable breast mass, a negative mammogram must not discourage biopsy of a clinically suspicious lesion. Electronically Signed By: Franco Ledesma M.D. acr/penrad:09/08/2022 16:12:38 ACR BI-RADS Category 2: Benign Finding(s) 3342F PARENCHYMAL PATTERN: (A) - The breast(s) demonstrate(s) scattered fibroglandular densities. BI-RADS CATEGORY: (2) - 2 Mammogram [id number] 1 year screening LATERALITY: (B)
== END 2022-09-08 12:58 | disposition home or self-care (01) ==
LOC: DI.N 12:57
DX: Z12.31 Encounter for screening mammogram for malignant neoplasm of breast (principal); Z80.3 Family history of malignant neoplasm of breast

== ENCOUNTER 2023-02-24 13:12 | Outpatient (CLI) | payer MEDICARE, OTHER ==
[2023-02-24 17:39] LABS: BASOPHILS # (AUTO) 0.1 10^3/uL (0.0-0.1); BASOPHILS % (AUTO) 0.6 %; EOSINOPHILS # (AUTO) 0.1 10^3/uL (0.0-0.7); EOSINOPHILS % (AUTO) 0.9 %; HCT - HEMATOCRIT 42.8 % (37.0-47.0); HGB - HEMOGLOBIN 13.8 g/dL (12.0-16.0); LYMPHOCYTES # (AUTO) 2.2 10^3/uL (1.5-3.5); LYMPHOCYTES % (AUTO) 27.2 %; MEAN CORPUSCULAR HGB CONC 32.2 g/dL (32.0-36.0); MEAN PLATELET VOLUME 12.7 fL (7.9-10.8); MONOCYTES # (AUTO) 0.6 10^3/uL (0.0-1.0); MONOCYTES % (AUTO) 7.2 %; NEUTROPHILS # (AUTO) 5.2 10^3/uL (1.5-6.6); NEUTROPHILS % (AUTO) 63.9 %; PLT - PLATELET COUNT 258 10^3/uL (130-450); RED CELL DISTRIBUTION WIDTH 14.2 % (12.0-15.0); WHITE BLOOD COUNT 8.1 x10^3/uL (4.8-10.8)
[2023-02-24 17:51] LABS: ALBUMIN 4.3 g/dL (3.2-5.5); ALBUMIN/GLOBULIN RATIO 1.4 (1.0-2.2); BILIRUBIN,TOTAL 0.6 mg/dL (0.2-1.0); CALCIUM 9.6 mg/dL (8.5-10.3); CREATININE 0.9 mg/dL (0.6-1.3); TOTAL PROTEIN 7.3 g/dL (6.4-8.9)
== END 2023-02-24 13:13 | disposition home or self-care (01) ==
LOC: LAB.N 13:12
PROVIDERS: ATTEND Internal Medicine Interventional Cardiology
DX: I35.0 Nonrheumatic aortic (valve) stenosis (principal)
CPT/HCPCS: 36415; 80053; 85025

== ENCOUNTER 2023-04-14 13:29 | Emergency (ER) | payer MEDICARE, OTHER ==
[2023-04-14 14:06] LABS: BASOPHILS % (AUTO) 0.2 %; HCT - HEMATOCRIT 39.4 % (37.0-47.0); LYMPHOCYTES # (AUTO) 0.4 10^3/uL (1.5-3.5); LYMPHOCYTES % (AUTO) 3.8 %; MEAN CORPUSCULAR VOLUME 87.9 fL (81.0-99.0); MEAN PLATELET VOLUME 11.9 fL (7.9-10.8); MONOCYTES % (AUTO) 10.2 %; NEUTROPHILS % (AUTO) 85.5 %; PLT - PLATELET COUNT 148 10^3/uL (130-450); RED BLOOD COUNT 4.48 10^6/uL (4.20-5.40); RED CELL DISTRIBUTION WIDTH 13.1 % (12.0-15.0); WHITE BLOOD COUNT 9.4 x10^3/uL (4.8-10.8)
[2023-04-14 14:21] LABS: ALBUMIN 3.7 g/dL (3.2-5.5); ALBUMIN/GLOBULIN RATIO 1.4 (1.0-2.2); BILIRUBIN,TOTAL 1.1 mg/dL (0.2-1.0); CALCIUM 9.3 mg/dL (8.5-10.3); CREATININE 1.8 mg/dL (0.6-1.3); POTASSIUM 3.5 mmol/L (3.5-4.5); TOTAL PROTEIN 6.4 g/dL (6.4-8.9)
--- NOTE | 2023-04-14 15:48 | ED Physician Documentation ---
History of Present Illness - Stated complaint Stated Complaint: COUGH,DIARRHEA,SOA,NAUSEA - Chief complaint Chief Complaint: Abd Pain - History obtained from History obtained from: Patient, Family - Additonal information Additional information: This is a dave 88-year-old woman who presents by private vehicle accompanied by her sister. It sounds like she has a recent diagnosis of critical aortic s tenosis per her history, and was seen by surgeon in [place]. She states the surgeon did not really instill a lot of confidence in her, but it does sound like a TAVR was recommended. Over the last 2 days she has developed dark diarrhea about 3 episodes a day with generalized weakness and a near syncopal episode last night where she hurt her neck. She has not had full syncope. She denies any chest pain or trouble breathing. She does feel weak all over. She also is worried about her tremor but that is a chronic issue. She did hit her head last night when she fell but again did not lose consciousness. Most recent echocardiogram for us on the chart was April of last year which point she had severe with peak velocity of 4 m/s and a valve area of 0.7 cm. 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, Other HEENT: Cataracts, Tonsil/Adenoidectomy - Present Medications Home Medications: Ambulatory Orders Medication Instructions Recorded Confirmed Cholecalciferol [Vitamin D3] 5,000 unit PO DAILY 07/13/15 04/14/23 Levothyroxine Sodium [Levoxyl] 50 mcg PO QDAC 07/13/15 04/14/23 Ascorbic Acid [Vitamin C] 500 mg PO DAILY 09/19/18 04/14/23 Aspirin [Aspirin EC] 81 mg PO PRN PRN 04/14/23 04/14/23 - Allergies Allergies/Adverse Reactions: Allergies Allergy/AdvReac Type Severity Reaction Status Date / Time alendronate sodium Allergy Unknown Verified 04/14/23 16:42 [From Fosamax] amoxicillin Allergy Hives Verified 04/14/23 16:42 nitrofurantoin Allergy Unknown Verified 04/14/23 16:42 [From Macrobid] nitrofurantoin Allergy Unknown Verified 04/14/23 16:42 macrocrystalline * [From Macrobid] Penicillins Allergy Unknown Verified 04/14/23 16:42 rosuvastatin calcium * Allergy Unknown Verified 04/14/23 16:42 [From Crestor] Sulfa (Sulfonamide Allergy Unknown Verified 04/14/23 16:42 Antibiotics) - Social History Does the pt smoke?: No Smoking Status: Never smoker Does the pt drink ETOH?: No Does the pt have substance abuse?: No - Immunizations Immunizations are current?: Yes PD ED PE NORMAL - Vitals Vital signs reviewed: Yes - General General: Alert and oriented X 3, No acute distress - HEENT HEENT: PERRL, EOMI - Neck Neck: Supple, no meningeal sign, No bony TTP - Cardiac Cardiac: RRR, Other (She has a loud systolic murmur heard best at the right upper sternal border, holosystolic at least 4 out of 6.) - Respiratory Respiratory: No respiratory distress, Clear bilaterally - Abdomen Abdomen: Non tender - Back Back: No CVA TTP, No spinal TTP - Derm Derm: Normal color, Warm and dry - Extremities Extremities: No edema, No calf tenderness / cord, Other (She She has a coarse tremor in her upper extremities) - Neuro Neuro: Alert and oriented X 3, Normal speech Eye Opening: Spontaneous Motor: Obeys Commands Verbal: Oriented GCS Score: 15 - Psych Psych: Normal mood, Normal affect Results - Vitals Vitals: Vital Signs - 24 hr 04/14/23 04/14/23 04/14/23 13:34 16:10 16:19 Temperature 36.8 C Heart Rate 100 85 56 L Respiratory 16 17 18 Rate Blood Pressure 100/60 85/62 L 96/78 O2 Saturation 98 95 91 L 04/14/23 04/14/23 04/14/23 16:24 18:00 18:39 Temperature 36.8 C Heart Rate 91 95 Respiratory 24 24 Rate Blood Pressure 118/108 H 107/58 L O2 Saturation 95 95 04/14/23 04/14/23 04/15/23 20:00 22:00 00:00 Temperature Heart Rate 90 80 84 Respiratory 24 20 22 Rate Blood Pressure 100/60 102/54 L 105/53 L O2 Saturation 94 93 98 04/15/23 04/15/23 04/15/23 02:00 04:00 06:00 Temperature Heart Rate 95 101 H 99 Respiratory 14 12 30 H Rate Blood Pressure 120/59 L 91/54 L 116/53 L O2 Saturation 97 95 90 L 04/15/23 08:00 Temperature 36.7 C Heart Rate 103 H Respiratory 22 Rate Blood Pressure 133/70 H O2 Saturation 94 Oxygen O2 Source Room air - EKG (time done) 1554 EKG releavant findings:: EKG personally interpreted by author of this note. Relevant findings are: Rate: Rate (enter#) (92) Rhythm: NSR (w pvcs) [place]: Normal Intervals: Normal OK QRS: LVH Ischemia: Other (JENN d/t strain/lvh) Computer interpretation: Agree with computer - Labs Labs: Microbiology 04/14/23 19:53 Occult Blood - Final Stool Laboratory Tests 04/14/23 04/14/23 04/14/23 13:52 13:52 19:53 WBC 9.4 RBC 4.48 Hgb 13.0 Hct 39.4 MCV 87.9 MCH 29.0 MCHC 33.0 RDW 13.1 Plt Count 148 MPV 11.9 H Neut # (Auto) 8.0 H Lymph # (Auto) 0.4 L Gillespie # (Auto) 1.0 Eos # (Auto) 0.0 Baso # (Auto) 0.0 Absolute Nucleated RBC 0.00 Nucleated RBC % 0.0 Sodium 129 L Potassium 3.5 Chloride 93 L Carbon Dioxide 25 Anion Gap 11.0 BUN 25 H Creatinine 1.8 H Estimated GFR (MDRD) 26 L Glucose 198 H Calcium 9.3 Total Bilirubin 1.1 H AST 44 H ALT 16 Alkaline Phosphatase 45 Total Protein 6.4 Albumin 3.7 Globulin 2.7 Albumin/Globulin Ratio 1.4 Lipase 12 Urine Color DARK YELLOW Urine Clarity CLOUDY Urine pH 5.5 Ur Specific [place] 1.025 Urine Protein 30 H Urine Glucose (UA) NEGATIVE Urine Ketones TRACE Urine Occult Blood SMALL H Urine Nitrite NEGATIVE Urine Bilirubin SMALL H Urine Urobilinogen 0.2 (NORMAL) Ur Leukocyte Esterase SMALL H Urine RBC 6-10 H Urine WBC >25 H Urine WBC Clumps PRESENT Ur Squamous Epith Cells MANY Squamous H Urine Crystals >50 Calcium Oxalate Urine Bacteria Many H Urine Casts 11-25 Granular Casts Ur Microscopic Review INDICATED Urine Culture Comments NOT INDICATED Blood Type Antibody Screen 04/14/23 04/14/23 04/14/23 20:45 20:45 20:45 WBC RBC Hgb 11.3 L Hct 34.3 L MCV MCH MCHC RDW Plt Count MPV Neut # (Auto) Lymph # (Auto) Gillespie # (Auto) Eos # (Auto) Baso # (Auto) Absolute Nucleated RBC Nucleated RBC % Sodium 128 L Potassium 3.2 L Chloride 99 L Carbon Dioxide 21 Anion Gap 8.0 BUN 25 H Creatinine 1.6 H Estimated GFR (MDRD) 30 L Glucose 132 H Calcium 8.3 L Total Bilirubin AST ALT Alkaline Phosphatase Total Protein Albumin Globulin Albumin/Globulin Ratio Lipase Urine Color Urine Clarity Urine pH Ur Specific [place] Urine Protein Urine Glucose (UA) Urine Ketones Urine Occult Blood Urine Nitrite Urine Bilirubin Urine Urobilinogen Ur Leukocyte Esterase Urine RBC Urine WBC Urine WBC Clumps Ur Squamous Epith Cells Urine Crystals Urine Bacteria Urine Casts Ur Microscopic Review Urine Culture Comments Blood Type O POSITIVE Antibody Screen NEGATIVE 04/15/23 02:18 WBC 7.7 RBC 4.61 Hgb 13.3 Hct 41.2 MCV 89.4 MCH 28.9 MCHC 32.3 RDW 13.4 Plt Count 115 L MPV 12.1 H Neut # (Auto) 5.7 Lymph # (Auto) 1.0 L Gillespie # (Auto) 1.1 H Eos # (Auto) 0.0 Baso # (Auto) 0.0 Absolute Nucleated RBC 0.00 Nucleated RBC % 0.0 Sodium Potassium Chloride Carbon Dioxide Anion Gap BUN Creatinine Estimated GFR (MDRD) Glucose Calcium Total Bilirubin AST ALT Alkaline Phosphatase Total Protein Albumin Globulin Albumin/Globulin Ratio Lipase Urine Color Urine Clarity Urine pH Ur Specific [place] Urine Protein Urine Glucose (UA) Urine Ketones Urine Occult Blood Urine Nitrite Urine Bilirubin Urine Urobilinogen Ur Leukocyte Esterase Urine RBC Urine WBC Urine WBC Clumps Ur Squamous Epith Cells Urine Crystals Urine Bacteria Urine Casts Ur Microscopic Review Urine Culture Comments Blood Type Antibody Screen - Rads (name of study) CT of the head and cervical spine were unremarkable for trauma. She did have degenerative changes. Relevant Findings:: Final report received, EMP independent interpretation of test PD Medical Decision Making - ED course ED course: 88-year-old woman with severe or critical presents with near syncopal episode and dark diarrhea concerning for GI bleeding. She is not anticoagulated. She does not appear fluid overloaded. Initial workup in the emergency department showed a CBC that was grossly normal, CMP showing hyponatremia which is new for her, 2 months ago her sodium was 140, today it is 129. She has some prerenal azotemia/DWAYNE. There was a significant delay to the neck step as we wanted to get a stool sample for mostly guaiac. It took her quite some time to produce a stool sample and it was quite small (qns for cdiff/cx). That said it was very guaiac positive per the lab, but not melena per se. I am going to repeat her H&H and B MP after 2 L of fluid and get a CT. I did present the case to Dr. Daily, our on-call surgeon with the expectation that she would probably need to see the patient in the morning if still here after admission to medicine and she is happy to do so. Care to Dr Prieto at 11p shift chg pending ct a/p read with plan to obs p that. Departure - Departure Clinical Impression: GIB (gastrointestinal bleeding), Nausea, Dark stools Condition: Fair Forms: PCP List
[2023-04-14] MEDS: SODIUM CHLORIDE 0.9% 1,000 ML IV STA ×3 (15:57→22:07)
--- NOTE | 2023-04-14 18:06 | CT Report ---
PROCEDURE: Head WO INDICATIONS: haed inj TECHNIQUE: Noncontrast 4.5 mm thick angled axial sections acquired from the foramen magnum to the vertex. For r adiation dose reduction, the following was used: automated exposure control, adjustment of mA and/or kV according to patient size. COMPARISON: 09/19/2018 FINDINGS: Image quality: Excellent. CSF spaces: Basal cisterns are patent. No extra-axial fluid collections. Ventricles are normal in size and shape. Brain: No midline shift. No intracranial masses or hemorrhage. Richter-white matter interface is norm al. Skull and face: Calvarium and visualized facial bones are intact, without suspicious lesions. Sinuses: Visualized sinuses and mastoids are clear. IMPRESSION: No CT evidence of acute intracranial trauma. No significant soft tissue injury or underlying fracture. Reviewed by: Rosana Sandoval MD on 04/14/2023 6:04 PM PST Approved by: Rosana Sandoval MD on 04/14/2023 6:04 PM PST Station ID: [id number]
--- NOTE | 2023-04-14 18:23 | CT Report ---
PROCEDURE: Cervical Spine WO INDICATIONS: neck inj TECHNIQUE: Noncontrast 3 mm thick sections acquired from the skull base to the T4 level. Sagittal and coronal r eformats were then constructed. For radiation dose reduction, the following was used: automated exp osure control, adjustment of mA and/or kV according to patient size. COMPARISON: None. FINDINGS: Image quality: Excellent. Bones: No fractures or dislocations. There is intact precervical junction. Moderate degeneration at the atlantodental interval. Severe disc height loss at C5-6 and C6-7. Multilevel uncovertebral joint hypertrophy and facet arthropathy. Visualized superior ribs are intact. Soft tissues: Prevertebral soft tissues are normal in thickness. No paravertebral hematomas. No ap ical pneumothoraces. IMPRESSION: No acute, displaced fracture or traumatic subluxation. Degenerative disc, endplate, and facet joint changes throughout the cervical spine. Reviewed by: Rosana Sandoval MD on 04/14/2023 6:22 PM PST Approved by: Rosana Sandoval MD on 04/14/2023 6:22 PM PST Station ID: [id number]
[2023-04-14] MEDS: ACETAMINOPHEN 500 MG TABLET PO STA (19:21)
[2023-04-14 20:21] LABS: BILIRUBIN,URINE SMALL (NEGATIVE); GLUCOSE, URINE (UA) NEGATIVE (NEGATIVE); KETONES,URINE (UA) TRACE mg/dL (NEGATIVE); LEUKOCYTE ESTERASE, URINE SMALL (NEGATIVE); NITRITE,URINE NEGATIVE (NEGATIVE); OCCULT BLOOD,URINE SMALL (NEGATIVE); PH,URINE 5.5 PH (5.0-7.5); PROTEIN,URINE 30 mg/dL (NEGATIVE); UROBILINOGEN,URINE 0.2 (NORMAL) E.U./dL (NORMAL)
[2023-04-14 20:22] LABS: CLARITY,URINE CLOUDY (CLEAR)
[2023-04-14] MEDS: PANTOPRAZOLE 40 MG VIAL IVP STA (20:40)
[2023-04-14 20:46] LABS: BACTERIA,URINE Many /HPF (None Seen); CRYSTALS,URINE >50 Calcium Oxalate /LPF; SQUAMOUS EPITHELIAL CELL,UR MANY Squamous (<= Few); WBC CLUMPS,URINE PRESENT; WBC,URINE >25 /HPF (0-5)
[2023-04-14 20:56] LABS: HCT - HEMATOCRIT 34.3 % (37.0-47.0); HGB - HEMOGLOBIN 11.3 g/dL (12.0-16.0)
[2023-04-14] MEDS ORDERED: iohexoL-300 100 ML VIAL ONE (21:03)
[2023-04-14 21:13] LABS: CALCIUM 8.3 mg/dL (8.5-10.3); CREATININE 1.6 mg/dL (0.6-1.3); POTASSIUM 3.2 mmol/L (3.5-4.5)
[2023-04-14] MEDS: POTASSIUM CHLOR 10 MEQ/100 ML 10 MEQ/100 ML BAG IV STA (21:44)
--- NOTE | 2023-04-14 23:34 | ED Physician Documentation ---
ED Addendum - Addendum Addendum: 04/15/23 00:42 Patient endorsed to me by Dr. Crane for admission pending CT a/p results. He already arranged with gen surgery for consult for endoscopy and/or colonoscopy tomorrow given patient had dark stool and dropping hemoglobin from 13 to 11.3, along with some marielena (1.8 improving to 1.6 on repeat). Plan to admit to telehealth for observation overnight and scope tomorrow. Telehealth hospitalist Dr. Dixon declined admission. He does not think patient needs colonoscopy or endoscopy at this time, believing the hemoglobin is dilutional. He doesn't think she should get endoscopy/colonoscopy due to risk of morbidity/mortality 2/2 age and critical aortic stenosis. He recommends we monitor her and repeat CBC to check if it's remaining stable. I discussed that we could admit to observation for monitoring and repeat CBC with consult to surgery in the morning. He requested we do it overnight. 04/15/23 01:23 04/15/23 02:46 Repeat CBC 13.3. Patient is sleeping comfortably. Her family has gone home for the night. Plan to endorse to incoming daytime ED MD at 7am shift change. Possible dc home versus assisted placement given her frequent falls, worsening weakness and dizziness in the setting of critical .
--- NOTE | 2023-04-14 23:40 | CT Report ---
PROCEDURE: Abdomen/Pelvis WO INDICATIONS: gi bleed, diarrhea for 3 days with nausea and vomiting TECHNIQUE: A CT scan of the abdomen and pelvis was performed without the use of intravenous contrast. Images we re recorded and evaluated at appropriate window settings. Reformats: coronal and sagittal. For radiat ion dose reduction, the following was used: automated exposure control, adjustment of mA and/or kV ac cording to patient size. COMPARISON: CT abdomen pelvis 11/13/2019. FINDINGS: Image quality: Diagnostic. Lower chest: Bibasilar atelectasis.. Liver: No contour-deforming mass. Gallbladder and biliary tree: Surgically absent. No biliary dilation, accounting for post-cholecystec harman state. Spleen: No splenomegaly. Pancreas: No pancreatic ductal dilation. Adrenals: No adrenal nodule. Kidneys and ureters: No hydronephrosis. No renal cystic lesion which requires follow up. No solid mas s. Stomach, bowel and peritoneum: No bowel distension. No pathologic free fluid. Diverticulosis without evidence of diverticulitis. Lymph nodes: No central or retroperitoneal adenopathy. Vessels: No infrarenal aortic aneurysm. Aortobiiliac atherosclerotic calcifications. PELVIS Reproductive organs: Unremarkable. Bladder: No wall thickness, accounting for underdistention. Pelvic lymph nodes: No pelvic adenopathy by size criteria. Bones: Degenerative disc disease at the visualized spine. Grade 1 retrolisthesis of L1 and L2. No janny tebral body compression fracture.. Other: Wide neck ventral hernia containing nonobstructive bowel. Additional small fat-containing umbi lical hernia superiorly. No inguinal hernia. IMPRESSION: Colonic diverticulosis without CT evidence of acute diverticulitis. No acute abdominal pelvic process . Reviewed by: Brittni Lemon MD on 04/14/2023 11:39 PM PST Approved by: Brittni Lemon MD on 04/14/2023 11:39 PM PST Station ID: [id number]
[2023-04-15 02:28] LABS: BASOPHILS % (AUTO) 0.4 %; HCT - HEMATOCRIT 41.2 % (37.0-47.0); HGB - HEMOGLOBIN 13.3 g/dL (12.0-16.0); LYMPHOCYTES % (AUTO) 12.4 %; MEAN CORPUSCULAR HEMOGLOBIN 28.9 pg (27.0-31.0); MEAN CORPUSCULAR HGB CONC 32.3 g/dL (32.0-36.0); MEAN CORPUSCULAR VOLUME 89.4 fL (81.0-99.0); MEAN PLATELET VOLUME 12.1 fL (7.9-10.8); MONOCYTES # (AUTO) 1.1 10^3/uL (0.0-1.0); MONOCYTES % (AUTO) 13.8 %; NEUTROPHILS # (AUTO) 5.7 10^3/uL (1.5-6.6); PLT - PLATELET COUNT 115 10^3/uL (130-450); RED BLOOD COUNT 4.61 10^6/uL (4.20-5.40); RED CELL DISTRIBUTION WIDTH 13.4 % (12.0-15.0); WHITE BLOOD COUNT 7.7 x10^3/uL (4.8-10.8)
[2023-04-15] MEDS ORDERED: ACETAMINOPHEN 500 MG TABLET PO PRN (12:00)
[2023-04-15] MEDS ORDERED: ONDANSETRON 4 MG/2 ML VIAL IVP PRN (12:00)
--- NOTE | 2023-04-15 12:03 | ED Physician Documentation ---
ED Addendum - Addendum Addendum: 04/15/23 12:02 I resumed care of her at this time and saw her at the bedside. She is feeling very weak but denies pain. Briefly she is an elderly 88-year-old woman with history of critical and has declined surgery specifically TAVR for this. She presented yesterday for bloody diarrhea and did have a drop in her hemoglobin from 13-11, and she was presented to the hospitalist for admission. Subsequently her hemoglobin came back up so it was felt to be dilutional. She has not had obviously ongoing bleeding clinically. The hospitalist declined her for admission. At this point she does appear too weak to go home but does not seem to have admission criteria per se. This was discussed with her and she would like to do home health more than a SNF. She is also entertaining hospice. Both hospice consults and social work consults were submitted. 04/15/23 14:12 She has been seen by our social secretary Jeannette. Patient does not have resources for home health but she has a daughter coming up from the [facility] area and another from [place] to help out. Disposition: Discharged home Condition: Stable Diagnosis: 1. GI bleeding 2. Weakness 3. Critical aortic stenosis
[2023-04-15] MEDS: PANTOPRAZOLE 40 MG TABLET PO SCH (12:39)
[2023-04-15] MEDS: LEVOTHYROXINE 25 MCG TABLET PO SCH (13:53)
[2023-04-15 15:39] VITALS: BP 138/79; O2SAT 98
== END 2023-04-15 15:37 | disposition home or self-care (01) ==
LOC: ED 13:29
DX: K92.1 Melena (principal); R11.0 Nausea; I35.0 Nonrheumatic aortic (valve) stenosis; I10 Essential (primary) hypertension; E78.00 Pure hypercholesterolemia, unspecified; E03.9 Hypothyroidism, unspecified; Z86.73 Personal history of transient ischemic attack (TIA), and cerebral infarction without residual deficits; Z79.899 Other long term (current) drug therapy
CPT/HCPCS: 36415; 70450; 72125; 74176; 80048; 80053; 81001; 82272; 83690; 85014; 85018; 85025; 86850; 86900; 86901; 93005; 96361; 96374; 99284; A9270; 81003; 87086